=== PATIENT | male | born 1940 | race Caucasian/White ===

== ENCOUNTER 2016-12-22 15:59 | Emergency (ER) | payer OTHER ==
[2016-12-22 16:07] VITALS: O2SAT 92
--- NOTE | 2016-12-22 16:11 | EDPHY ---
H & P Stated Complaint: cough, sob, feels feverish, unable to finish today dialysis HPI/ROS: HPI CHIEF COMPLAINT: Cough, shortness of breath, chills, rigors, dialysis HISTORY OF PRESENT ILLNESS: Patient very pleasant 75-year-old male, undergoing chemotherapy for colon cancer, also is on dialysis end-stage renal disease and gets dialysis Monday and . Patient was at dialysis today he finished 2 hours and 45 minutes of his 3 hour and 45 minutes session. Dialysis was stopped due the patient complaining of chills and rigors. They did take his temperature is T-max was 99.5degrees. He decided to come to the emergency room due to chills and rigors. However since arriving he appears well nontoxic he states that feels well other than a nagging cough. He tells me over the last 2- 3 weeks his cough has progressively gotten worse. Patient does endorse wheezing and shortness of breath this. Of note upon arrival here in the emergency room is afebrile. Nontoxic appearing. Does not appear to be in any acute distress. Past Medical History:Colon cancer, end-stage renal disease, hypertension, coronary artery disease with stents Past Surgical History: Left arm AV fistula Social History: Denies daily use drugs alcohol tobacco products Family History: Noncontributory Dr. Mitchell is his oncologist. ROS REVIEW OF SYSTEMS: A comprehensive 10 point review of systems is otherwise negative aside from elements mentioned in the history of present illness. Exam Constitutional appears well nontoxic, triage nursing summary reviewed, vital signs reviewed, awake/alert. Eyes normal conjunctivae and sclera, EOMI, PERRLA. HENT normal inspection, atraumatic, moist mucus membranes, no epistaxis, neck supple/ no meningismus, no raccoon eyes. Respiratory faint wheezing bilaterally, clear to auscultation bilaterally, normal breath sounds, no respiratory distress Cardiovascular rate normal, regular rhythm, no murmur, no edema, distal pulses normal. Gastrointestinal soft, non-tender, no rebound, no guarding, normal bowel sounds, no distension, no pulsatile mass. Genitourinary no CVA tenderness. Musculoskeletal left upper extremity: AV fistula present, dressing in place, no midline vertebral tenderness, full range of motion, no calf swelling, no tenderness of extremities, no meningismus, good pulses, neurovascularly intact. Skin pink, warm, & dry, no rash, skin atraumatic. Neurologic awake, alert and oriented x 3, AAOx3, moves all 4 extremities equally, motor intact, sensory intact, CN II-XII intact, normal cerebellar, normal vision, normal speech. Psychiatric normal mood/affect. Heme/Lymph/Immune no lymphadenopathy. Differential Diagnosis: Includes but is not limited to in a particular order bacteremia, sepsis, acute febrile illness, dehydration, electrolyte abnormality , pneumonia, influenza, bronchitis. Medical Decision Making: Plan for this patient had an IV established obtain blood work including blood cultures lactic acid, chest x-ray two view to rule out pneumonia, test for influenza, gently hydrate him, patient will have a DuoNeb breathing treatment. Re-evaluation: EKG interpretation by me on record in [employer] system. Impression time of EKG 163, this is sinus tachycardia rate of 100, Q-waves noted in inferior leads to 3 AVF PVC present. Otherwise I do not appreciate acute ischemic event. 174: I spoke with Dr. Prasad with Oncology we went over this patient's case including blood work findings, vital signs, workup including x-ray. It is noted this patient does not have a fever here he is not hypotensive he has no chest pain. He does endorse a bronchitic cough. Nonproductive. His x-ray shows no focal pneumonia does show bronchitis. Blood work has been reviewed he is not neutropenic there is no evidence of high white count there is no evidence of electrolyte disturbance. Blood cultures have been sent. Lactic is not acutely elevated. Feels comfortable with this patient going home. Given that the patient had chills and rigors will send blood cultures. He is afebrile here normal tense of with reassuring blood work. Patient is comfortable being discharged home however he understands to monitor him for high fever rigors nausea vomiting or does not feel well return to the ER. 174: patient is resting comfortably he is comfortable being discharged. I will prescribe him albuterol inhaler and guaifenesin as he does have a cough with bronchitic breathing and faint wheezing. He is comfortable this plan. I did offer him steroids however he has declined due to last time he got steroids he had a shingles outbreak. Source: Patient - Personal History Current Tetanus/Diphtheria Vaccine: Unsure Current Tetanus Diphtheria and Acellular Pertussis (TDAP): Unsure - Medical/Surgical History Hx Asthma: No Hx Chronic Respiratory Disease: No Hx Diabetes: No Hx Cardiac Disease: Yes Hx Renal Disease: Yes Hx Cirrhosis: No Hx Alcoholism: No Hx HIV/AIDS: No Hx Splenectomy or Spleen Trauma: No Other PMH: DIALYISIS MF, LEFT ARM FISTULA, HTN, PROSTATE, CARDIAC STENTS, RENAL FAILURE, REFLUX, CATARACT SURGERY, HIGH LIPIDS , COLON AND LIVER CA W/ CHEMO THERAPY EARLY 08/07 - Social History Smoking Status: Former smoker Constitutional: Initial Vital Signs Temperature (C) 36.6 C 12/22/16 16:04 Heart Rate 107 H 12/22/16 16:04 Respiratory Rate 20 12/22/16 16:04 O2 Sat (%) 92 12/22/16 16:04 O2 Delivery Mode Nasal Cannula O2 (L/minute) 3 Allergies/Adverse Reactions: cefazolin sodium [From Anc] Allergy (Verified 06/28/16 07:56) Home Medications: Medication Instructions Recorded Aspirin [Aspirin 81mg (*)] 81 mg PO DAILY 07/09/16 Atorvastatin Calcium [Lipitor 40 40 mg PO DAILY 07/09/16 mg (*)] Cholecalciferol Vit D3 [Vitamin D3 2,000 units PO HS 07/09/16 2000 units tab (OTC)] Eye Promise Restore 2 cap PO DAILY@12 07/09/16 Fe Fumarate/FA/Vit Bcomp&C 1 each PO DAILY 07/09/16 [Dialyvite 800 with Iron Tab] Finasteride [Proscar 5 MG (*)] 5 mg PO HS 07/09/16 Lisinopril [Zestril 2.5 mg (*)] 2.5 mg PO HS 07/09/16 Omeprazole Magnesium [Prilosec Otc] 20 mg PO DAILY 07/09/16 Sodium Bicarbonate [Na Bicarb] 650 mg PO DAILY@12 07/09/16 Tamsulosin HCl [Flomax 0.4 MG (*)] 0.4 mg PO HS 07/09/16 oxyCODONE/APAP 5/325 [Percocet 1 - 2 tab PO Q4 PRN #30 tab 07/12/16 5/325 (*)] Albuterol [Proventil Inhaler HFA 1 - 2 puffs IH Q4H #1 mdi 12/22/16 (*)] Guaifenesin [Guaifenesin ER] 600 mg PO BID #14 tab.er.12h 12/22/16 Medical Decision Making - Data Points Laboratory Results: Laboratory Results 12/22/16 16:33 12/22/16 16:33 12/22/16 12/22/16 12/22/16 16:33 16:33 16:33 WBC RBC Hgb Hct MCV MCH MCHC RDW Plt Count MPV Neut % (Auto) Lymph % (Auto) [place] % (Auto) Eos % (Auto) Baso % (Auto) Nucleat RBC Rel Count Absolute Neuts (auto) Absolute Lymphs (auto) Absolute Monos (auto) Absolute Eos (auto) Absolute Basos (auto) Absolute Nucleated RBC Immature Gran % Immature Gran # PT 12.5 SEC SEC (12.0-15.0) INR 0.94 (0.83-1.16) APTT 36.9 SEC SEC (23.0-38.0) VBG Lactic Acid 2.1 mmol/L mmol/L (0.7-2.1) Sodium 139 mEq/L mEq/L (134-144) Potassium 3.8 mEq/L mEq/L (3.5-5.2) Chloride 94 mEq/L L mEq/L (97-110) Carbon Dioxide 33 mEq/l H mEq/l (22-31) Anion Gap 12 mEq/L mEq/L (8-16) BUN 20 mg/dL mg/dL (7-23) Creatinine 1.6 mg/dL H mg/dL (0.7-1.3) Estimated GFR 42 Glucose 83 mg/dL mg/dL (70-100) Calcium 9.0 mg/dL mg/dL (8.5-10.4) Magnesium 1.5 mg/dL L mg/dL (1.6-2.3) Total Bilirubin 1.2 mg/dL mg/dL (0.1-1.4) Conjugated Bilirubin 0.3 mg/dL mg/dL (0.0-0.5) Unconjugated Bilirubin 0.9 mg/dL mg/dL (0.0-1.1) AST 49 IU/L IU/L (17-59) ALT 43 IU/L IU/L (21-72) Alkaline Phosphatase 96 IU/L IU/L (38-126) Creatine Kinase 92 IU/L IU/L (0-224) CK-MB (CK-2) Fraction 1.84 ng/mL ng/mL (0-3.19) Troponin I 0.026 ng/mL ng/mL (0-0.034) NT-Pro-B Natriuret Pep 1970 pg/mL H pg/mL (0-450) Total Protein 7.8 g/dL g/dL (6.3-8.2) Albumin 4.1 g/dL g/dL (3.5-5.0) Lipase 640.0 IU/L H IU/L (23-300) 12/22/16 16:33 WBC 4.42 10^3/uL 10^3/uL (3.80-9.50) RBC 4.02 10^6/uL L 10^6/uL (4.40-6.38) Hgb 12.5 g/dL L g/dL (13.7-17.5) Hct 37.1 % L % (40.0-51.0) MCV 92.3 fL fL (81.5-99.8) MCH 31.1 pg pg (27.9-34.1) MCHC 33.7 g/dL g/dL (32.4-36.7) RDW 16.3 % H % (11.5-15.2) Plt Count 107 10^3/uL L 10^3/uL (150-400) MPV 9.9 fL fL (8.7-11.7) Neut % (Auto) 59.7 % % (39.3-74.2) Lymph % (Auto) 17.4 % % (15.0-45.0) [place] % (Auto) 16.1 % H % (4.5-13.0) Eos % (Auto) 5.9 % % (0.6-7.6) Baso % (Auto) 0.7 % % (0.3-1.7) Nucleat RBC Rel Count 0.0 % % (0.0-0.2) Absolute Neuts (auto) 2.64 10^3/uL 10^3/uL (1.70-6.50) Absolute Lymphs (auto) 0.77 10^3/uL L 10^3/uL (1.00-3.00) Absolute Monos (auto) 0.71 10^3/uL 10^3/uL (0.30-0.80) Absolute Eos (auto) 0.26 10^3/uL 10^3/uL (0.03-0.40) Absolute Basos (auto) 0.03 10^3/uL 10^3/uL (0.02-0.10) Absolute Nucleated RBC 0.00 10^3/uL 10^3/uL (0-0.01) Immature Gran % 0.2 % % (0.0-1.1) Immature Gran # 0.01 10^3/uL 10^3/uL (0.00-0.10) PT INR APTT VBG Lactic Acid Sodium Potassium Chloride Carbon Dioxide Anion Gap BUN Creatinine Estimated GFR Glucose Calcium Magnesium Total Bilirubin Conjugated Bilirubin Unconjugated Bilirubin AST ALT Alkaline Phosphatase Creatine Kinase CK-MB (CK-2) Fraction Troponin I NT-Pro-B Natriuret Pep Total Protein Albumin Lipase Medications Given: Discontinued Medications Albuterol/Ipratropium (Duoneb) 3 ml IH EDNOW ONE Stop: 12/22/16 16:22 Last Admin: 12/22/16 16:50 Dose: 3 ml Departure - Departure Disposition: Home, Routine, Self-Care Clinical Impression: Cough, Bronchitis Condition: Good Instructions: Acute Bronchitis (ED), Cold Symptoms (ED) Additional Instructions: 1.Stay well-hydrated. 2. Return immediately to the emergency room if he develops a high fever greater than 100.4 chills rigors vomiting or you do not feel well or you have worsening shortness of breath. Referrals: NONE *PRIMARY CARE P,. [Primary Care Provider] - As per Instructions Prescriptions: Albuterol [Proventil Inhaler HFA (*)] 1 - 2 puffs IH Q4H #1 mdi Guaifenesin [Guaifenesin ER] 600 mg PO BID #14 tab.er.12h
[2016-12-22] MEDS ORDERED: IPRATROPIUM/ALBUTEROL 3 ML DEYVIAL IH ONE (16:21)
--- NOTE | 2016-12-22 16:35 | CPEKG ---
Heart Rate: 100 RR Interval: 600 P-R Interval: 156 QRSD Interval: 82 QT Interval: 360 QTC Interval: 465 P [place]: -8 QRS [place]: -19 T Wave [place]: 14 EKG Severity - ABNORMAL ECG - EKG Impression: SINUS TACHYCARDIA EKG Impression: INFERIOR INFARCT, AGE INDETERMINATE EKG Impression: CONSIDER POSTERIOR WALL INVOLVEMENT Electronically Signed By: Alfa Adamson 22-Dec-2016 21:17:30
[2016-12-22 16:48] VITALS: TEMP 98.2
[2016-12-22 16:55] LABS: % IMMATURE GRANULYOCYTES 0.2 % (0.0-1.1); ABSOLUTE IMMATURE GRANULOCYTES 0.01 10^3/uL (0.00-0.10); ADD DIFF? NO; ADD MORPH? NO; ADD SCAN? NO; ATYPICAL LYMPHOCYTE FLAG 20 (0-99); FRAGMENT RBC FLAG 0 (0-99); HEMATOCRIT 37.1 % (40.0-51.0); HEMOGLOBIN 12.5 g/dL (13.7-17.5); LEFT SHIFT FLG 10 (0-99); LIPEMIA HEMOLYSIS FLAG 80 (0-99); MEAN CELL HEMOGLOBIN 31.1 pg (27.9-34.1); MEAN CELL HEMOGLOBIN CONCENTR. 33.7 g/dL (32.4-36.7); MEAN CELL VOLUME 92.3 fL (81.5-99.8); MEAN PLATELET VOLUME 9.9 fL (8.7-11.7); PLATELET CLUMPS FLAG 0 (0-99); PLATELET COUNT 107 10^3/uL (150-400); RED BLOOD CELL COUNT 4.02 10^6/uL (4.40-6.38); RED CELL DISTRIBUTION WIDTH 16.3 % (11.5-15.2)
[2016-12-22 17:04] LABS: INR 0.94 (0.83-1.16); PROTIME(PATIENT) 12.5 SEC (12.0-15.0)
[2016-12-22 17:05] LABS: APTT 36.9 SEC (23.0-38.0)
[2016-12-22 17:07] LABS: ALANINE AMINOTRANSFERASE 43 IU/L (21-72); ALBUMIN 4.1 g/dL (3.5-5.0); ALKALINE PHOSPHATASE 96 IU/L (38-126); ANION GAP 12 mEq/L (8-16); ASPARTATE AMINOTRANSFERASE 49 IU/L (17-59); BILIRUBIN,TOTAL 1.2 mg/dL (0.1-1.4); BILIRUBIN-CONJUGATED 0.3 mg/dL (0.0-0.5); BILIRUBIN-UNCONJUGATED 0.9 mg/dL (0.0-1.1); CARBON DIOXIDE 33 mEq/l (22-31); CHLORIDE 94 mEq/L (97-110); CREATININE 1.6 mg/dL (0.7-1.3); GLOMERULAR FILTRATION RATE 42; GLUCOSE 83 mg/dL (70-100); MAGNESIUM 1.5 mg/dL (1.6-2.3); POTASSIUM 3.8 mEq/L (3.5-5.2); SODIUM 139 mEq/L (134-144); TOTAL PROTEIN 7.8 g/dL (6.3-8.2)
[2016-12-22 17:19] LABS: CREATINE KINASE-MB FRACTION 1.84 ng/mL (0-3.19); TROPONIN I 0.026 ng/mL (0-0.034)
[2016-12-22 17:57] VITALS: BP 150/86; PULSE 97; RESP 19
== END 2016-12-22 17:57 | disposition home or self-care (01) ==
DX: J40 Bronchitis, not specified as acute or chronic (principal); I10 Essential (primary) hypertension; Z85.038 Personal history of other malignant neoplasm of large intestine; Z85.05 Personal history of malignant neoplasm of liver; Z79.82 Long term (current) use of aspirin; Z87.891 Personal history of nicotine dependence; Z95.5 Presence of coronary angioplasty implant and graft

== ENCOUNTER 2016-12-23 14:06 | Emergency (ER) | payer OTHER ==
[2016-12-23 14:18] VITALS: PULSE 85; RESP 18; TEMP 98.1
--- NOTE | 2016-12-23 14:28 | EDPHY ---
H & P Stated Complaint: Called to return to ED for abnl labs yesterday Time Seen by Provider: 12/23/16 14:20 HPI/ROS: CHIEF COMPLAINT: Positive blood culture, return to ER HISTORY OF PRESENT ILLNESS: 75-year-old male currently undergoing chemotherapy for colon cancer, history of end-stage renal disease with dialysis Monday and , seen the ER yesterday after he developed chills riders during dialysis session, seen in the ER complaining of 2-3 weeks of cough, wheezing. He had laboratory studies performed yesterday including blood culture. The patient subsequently grew out 1 of 2 positive cultures Gram-positive cocci zoster staph coagulase negative in his told did return to the ER for recheck and for repeat blood culture. States that he is feeling asymptomatic, no new complaints. He denies: Fever, chills, chest pain, back pain, abdominal pain, nausea, vomiting, urinary abnormality, dyspnea, headache PRIMARY CARE PROVIDER: REVIEW OF SYSTEMS: A ten point review of systems was performed and is negative with the exception of the items mentioned in the HPI PAST MEDICAL & SURGICAL HISTORY: Colon cancer. End-stage renal disease. Hypertension. Coronary artery disease with stents. Left arm AV fistula. SOCIAL HISTORY: nonsmoker PHYSICAL EXAM (Prior to examination, patient consented to physical exam, hands were washed and my usual and customary physical exam procedures followed) 1) GENERAL: Well-developed, well-nourished, alert and oriented. Appears to be in no acute distress. Smiling, shakes my hand appears well 2) HEAD: Normocephalic, atraumatic 3) HEENT: Pupils equal, round, reactive to light bilaterally. Sclera anicteric. Nasopharynx, oropharynx, clear, no lesions.No tonsillar enlargement or tonsillar exudate Ears bilaterally with normal tympanic membranes. 4) NECK: Full range of motion, no meningeal signs. 5) LUNGS: Clear auscultation bilaterally, no wheezes, no rhonchi, no retractions. 6) HEART: Regular rate and rhythm, no murmur, no heave, no gallop. 7) ABDOMEN: No guarding, no rebound, no focal tenderness, negative McBurney's, negative Kiran's, negative Rovsing's, negative peritoneal sign, 8) MUSCULOSKELETAL: Moving all extremities, no focal areas of tenderness, no obvious trauma. No peripheral edema or discoloration. 9) BACK: No CVA tendernes. 10) SKIN: No rash, no petechiae. 11) Psychiatric: Patient is oriented X 3, there is no agitation. DIFFERENTIAL DIAGNOSIS: no particular include but limited to bronchitis, sepsis, blood contaminant - Personal History Current Tetanus Diphtheria and Acellular Pertussis (TDAP): Yes - Medical/Surgical History Hx Asthma: No Hx Chronic Respiratory Disease: No Hx Diabetes: No Hx Cardiac Disease: Yes Hx Renal Disease: Yes Hx Cirrhosis: No Hx Alcoholism: No Hx HIV/AIDS: No Hx Splenectomy or Spleen Trauma: No Other PMH: DIALYISIS MF, LEFT ARM FISTULA, HTN, PROSTATE, CARDIAC STENTS, RENAL FAILURE, REFLUX, CATARACT SURGERY, HIGH LIPIDS , COLON AND LIVER CA W/ CHEMO THERAPY EARLY 08/07 - Social History Smoking Status: Former smoker Constitutional: Initial Vital Signs Temperature (C) 36.7 C 12/23/16 14:10 Heart Rate 85 12/23/16 14:10 Respiratory Rate 18 12/23/16 14:10 Blood Pressure 148/102 H 12/23/16 14:10 O2 Sat (%) 96 12/23/16 14:10 O2 Delivery Mode Room Air Allergies/Adverse Reactions: cefazolin sodium [From Anc] Allergy (Verified 12/23/16 14:14) Home Medications: Medication Instructions Recorded Aspirin [Aspirin 81mg (*)] 81 mg PO DAILY 07/09/16 Atorvastatin Calcium [Lipitor 40 40 mg PO DAILY 07/09/16 mg (*)] Cholecalciferol Vit D3 [Vitamin D3 2,000 units PO HS 07/09/16 2000 units tab (OTC)] Eye Promise Restore 2 cap PO DAILY@12 07/09/16 Fe Fumarate/FA/Vit Bcomp&C 1 each PO DAILY 07/09/16 [Dialyvite 800 with Iron Tab] Finasteride [Proscar 5 MG (*)] 5 mg PO HS 07/09/16 Lisinopril [Zestril 2.5 mg (*)] 2.5 mg PO HS 07/09/16 Omeprazole Magnesium [Prilosec Otc] 20 mg PO DAILY 07/09/16 Sodium Bicarbonate [Na Bicarb] 650 mg PO DAILY@12 07/09/16 Tamsulosin HCl [Flomax 0.4 MG (*)] 0.4 mg PO HS 07/09/16 oxyCODONE/APAP 5/325 [Percocet 1 - 2 tab PO Q4 PRN #30 tab 07/12/16 5/325 (*)] Albuterol [Proventil Inhaler HFA 1 - 2 puffs IH Q4H #1 mdi 12/22/16 (*)] Guaifenesin [Guaifenesin ER] 600 mg PO BID #14 tab.er.12h 12/22/16 Medical Decision Making ED Course/Re-evaluation: I reviewed the patient's medical records and laboratory studies showing 1 of 2 Gram-positive cocci, Staph coagulase negative. I think this is more than likely contaminant. Nonetheless repeat blood cultures have been obtained, he is currently asymptomatic with stable vital signs, appears well. Discussed case Dr. Deb Taveras in the ER. Repeat blood cultures have been obtained, he will be discharged. I do not think that further diagnostic studies indicated from the emergency department. Usual and customary discharge precautions and instructions provided the patient. He feels comfortable being discharged all questions and concerns addressed by myself. Departure - Departure Disposition: Home, Routine, Self-Care Clinical Impression: Bronchitis Condition: Good Instructions: Acute Bronchitis (ED) Additional Instructions: Return to the ER if you develop fever, chills, nausea, vomiting or any other symptoms that concern you Referrals: Henrry Mitchell MD [Medical Doctor] - 2-3 days, call for appt.
[2016-12-23 15:10] VITALS: BP 149/89; O2SAT 99
== END 2016-12-23 15:10 | disposition home or self-care (01) ==
DX: J40 Bronchitis, not specified as acute or chronic (principal); I12.0 Hypertensive chronic kidney disease with stage 5 chronic kidney disease or end stage renal disease; N18.6 End stage renal disease; I25.10 Atherosclerotic heart disease of native coronary artery without angina pectoris; Z85.038 Personal history of other malignant neoplasm of large intestine; Z85.05 Personal history of malignant neoplasm of liver; Z87.891 Personal history of nicotine dependence; Z95.5 Presence of coronary angioplasty implant and graft

== ENCOUNTER 2017-01-25 10:58 | Day surgery (SDC) | payer OTHER ==
[2017-01-25] MEDS ORDERED: NS 500 ML IV SCH (11:45)
[2017-01-25] MEDS ORDERED: ALBUTEROL 3 ML DEYVIAL ONE (14:09)
[2017-01-25] MEDS ORDERED: MIDAZOLAM 2 MG/2 ML VIAL ONE (14:12)
[2017-01-25] MEDS ORDERED: fentaNYL 100 MCG/2 ML INJ ONE (14:12)
[2017-01-25] MEDS ORDERED: LIDOCAINE 1% 30 ML SDV ONE (14:13)
[2017-01-25] MEDS ORDERED: LIDOCAINE 2% JELLY 5 ML TUBE ONE (14:18)
--- NOTE | 2017-01-25 16:38 | GPN ---
[f rep st] PROCEDURE NOTE DATE OF PROCEDURE: 01/25/2017 REASON FOR PROCEDURE: Right infrahilar mass with bronchial narrowing, question metastatic adenocarc inoma from the colon versus a new primary lung cancer. IDENTIFICATION: The patient is a 76-year-old with metastatic colon cancer to the liver. He has bee n treated with chemotherapy with shrinking liver lesions. However, a right infrahilar lesion has be en growing. This raises the question of a different cancer, possibly a primary lung cancer as he wa s a previous smoker. PROCEDURE: The procedure was done in the endoscopy area and negative flow pressure room. N95 masks were worn. Appropriate time-out was performed. Informed consent was obtained from the patient. C onscious sedation included 100 mcg of fentanyl and 4 mg of Versed given intravenously. Topical anes thesia was accomplished with approximately 20 cc of 1% lidocaine. The fiberoptic bronchoscope was passed via bite block orally into the larynx. Laryngeal structures were observed. The vocal cords were somewhat asymmetrical, larger on the left than the right, but b oth vocal cords appeared to move with cough and respiration. Some paresis cannot be excluded. The bronchoscope was then advanced into the trachea and in the lower tracheobronchial tree bilaterally. Anatomy was normal on the left. In the bronchus intermedius, below the takeoff of the right upper lobe posteriorly, the mucosa was abnormal, consistent with probable malignancy. This extended into the takeoff of the superior segment of the right lower lobe. The right middle lobe and distal segme nts of the right lower lobe were normal, and the mucosa was normal in this area. Bronchial washings were obtained from the bronchus intermedius. This was followed by a brush biopsy sample and by 4 e ndobronchial biopsies. There was some bleeding, requiring approximately 6 cc of 1:10,000 epinephrin e to control the topical bleeding. Bleeding was minimal toward the end of the procedure. Samples were sent for cultures, cytology, and pathology. The patient tolerated the procedure well. There were no complications. Vital signs and oxygen satu ration on supplemental oxygen remained normal throughout the procedure. ASSESSMENT: Abnormal mucosa in the bronchus intermedius as described above, consistent with maligna ncy. Query metastatic adenocarcinoma of the colon versus primary lung cancer. /[id number]/MODL
== END 2017-01-25 16:40 | disposition home or self-care (01) ==
LOC: FSGY 10:58
PROVIDERS: ATTEND Internal Medicine Pulmonary Disease
PROC: 0BB38ZX Excision of Right Main Bronchus, Via Natural or Artificial Opening Endoscopic, Diagnostic (ICD-10-PCS; principal; 2017-01-25 14:30)
DX: C78.01 Secondary malignant neoplasm of right lung (principal); C78.7 Secondary malignant neoplasm of liver and intrahepatic bile duct; Z85.038 Personal history of other malignant neoplasm of large intestine; I25.10 Atherosclerotic heart disease of native coronary artery without angina pectoris; Z95.5 Presence of coronary angioplasty implant and graft; Z87.891 Personal history of nicotine dependence
CPT/HCPCS: J0171; J2250; J3010

== ENCOUNTER 2017-04-01 08:37 | Inpatient (IN) | payer OTHER ==
--- NOTE | 2017-04-01 08:47 | EDPHY ---
H & P Stated Complaint: n/v cough/cancer pt Time Seen by Provider: 04/01/17 08:46 HPI/ROS: CHIEF COMPLAINT: Fever, productive cough HISTORY OF PRESENT ILLNESS: The patient presents to the ED with worsening fever and productive cough for the past 2 days. The patient is currently being treated for metastatic cancer. The patient last take chemotherapy 2 weeks ago. He is also receiving radiation therapy. The patient reports generalized malaise, sensation of dehydration, significant dyspnea an ongoing dry hacking cough. The patient denies any acute abdominal pain or vomiting. The patient is a dialysis patient scheduled for 3 times a week dialysis. The patient was supposed to be dialyzed today. The patient denies any history of fall or trauma. The patient denies additional acute complaints. REVIEW OF SYSTEMS: A comprehensive 10 point review of systems is otherwise negative aside from elements mentioned in the history of present illness. Source: Patient - Personal History Current Tetanus/Diphtheria Vaccine: Yes - Medical/Surgical History Hx Asthma: No Hx Chronic Respiratory Disease: No Hx Diabetes: No Hx Cardiac Disease: Yes Hx Renal Disease: Yes Hx Cirrhosis: No Hx Alcoholism: No Hx HIV/AIDS: No Hx Splenectomy or Spleen Trauma: No Other PMH: DIALYISIS MF, LEFT ARM FISTULA, HTN, PROSTATE, CARDIAC STENTS, RENAL FAILURE, REFLUX, CATARACT SURGERY, HIGH LIPIDS , COLON AND LIVER CA W/ CHEMO THERAPY EARLY 08/07 - Social History Smoking Status: Former smoker - Physical Exam Exam: General Appearance: Thin cachectic male, no acute distress Eyes: Pupils equal and round no pallor or injection ENT, Mouth: Mucous membranes moist Respiratory: Tachypnea, actively coughing, rhonchorous breath sounds bilateral lung bases Cardiovascular: Tachycardic Gastrointestinal: Abdomen is soft and nontender, no masses, bowel sounds normal Neurological: A&O, normal motor function, normal sensory exam, normal cranial nerves Skin: Warm and dry, no rashes Musculoskeletal: Neck is supple nontender Extremities: Dialysis catheter noted in upper extremity Constitutional: Initial Vital Signs Temperature (C) 37.2 C 04/01/17 08:41 Heart Rate 134 H 04/01/17 08:41 Respiratory Rate 20 04/01/17 08:41 Blood Pressure 133/63 H 04/01/17 08:41 O2 Sat (%) 93 04/01/17 08:41 O2 Delivery Mode Room Air Allergies/Adverse Reactions: cefazolin sodium [From Anc] Allergy (Verified 01/24/17 17:50) heparin Allergy (Verified 04/01/17 09:17) Home Medications: Medication Instructions Recorded Aspirin [Aspirin 81mg (*)] 81 mg PO DAILY 07/09/16 Atorvastatin Calcium [Lipitor 40 40 mg PO DAILY 07/09/16 mg (*)] Cholecalciferol Vit D3 [Vitamin D3 2,000 units PO HS 07/09/16 2000 units tab (OTC)] Eye Promise Restore 2 cap PO DAILY@12 07/09/16 Finasteride [Proscar 5 MG (*)] 5 mg PO HS 07/09/16 Iron Fum/Folic AC/Vit Bcomp,C 1 each PO DAILY 07/09/16 [Dialyvite 800 with Iron Tab] Lisinopril [Zestril 2.5 mg (*)] 2.5 mg PO HS 07/09/16 Sodium Bicarbonate [Na Bicarb] 650 mg PO DAILY@12 07/09/16 Tamsulosin HCl [Flomax 0.4 MG (*)] 0.4 mg PO HS 07/09/16 Omeprazole [Prilosec 20 mg] 20 mg PO DAILY 04/01/17 Medical Decision Making - Diagnostics EKG Interpretation: EKG: Complete interpretation has been separately recorded in the [employer] archive. Summary impression: Sinus tachycardia, rate 119 Imaging Results: Imaging Impressions Chest X-Ray 04/01/17 08:48 Impression: Bilateral lower lobe early pneumonia. ED Course/Re-evaluation: The patient presents to the ED with fever, malaise and a productive cough. The patient was noted to be slightly tachycardic and hypoxic upon arrival. Physical examination and chest x-ray confirmed the presence of a bilateral lower lobe pneumonia. The patient had an IV established. He received blood cultures x2. The patient was noted to have leukocytosis and tachycardia. The patient does qualify for sepsis but not severe sepsis. The patient does have an elevated creatinine however this is chronic. The patient was given a single dose of levofloxacin per pharmacy with his history of renal disease and hemodialysis. The patient will require admission to the hospital. Consultation was made with nephrology service. I spoke with at 10:00 a.m.. He will see the patient in consultation Consultation was made with the hospitalist service. I spoke with nurse practitioner Loreto Soni who reports the patient will be admitted by Dr. Federica Conklin. I re-evaluated the patient at 10:15 a.m.. He is resting comfortably in the room. He will receive supplemental oxygen. The patient has mild hyperkalemia with a potassium of 5.4. Re-examination at 11:15 a.m.: Patient continues to be hemodynamically stable aside from mild sinus tachycardia. Patient is awaiting transfer to medical- surgical floor. Differential Diagnosis: Differential diagnosis considered includes pneumonia, sepsis, severe sepsis, neutropenia, myocardial infarction, hyperkalemia, renal failure - Data Points Laboratory Results: Laboratory Results 04/01/17 05:56 04/01/17 09:00 04/01/17 04/01/17 04/01/17 09:06 09:00 05:56 WBC 22.98 10^3/uL H 10^3/uL (3.80-9.50) RBC 3.56 10^6/uL L 10^6/uL (4.40-6.38) Hgb 10.8 g/dL L g/dL (13.7-17.5) Hct 32.3 % L % (40.0-51.0) MCV 90.7 fL fL (81.5-99.8) MCH 30.3 pg pg (27.9-34.1) MCHC 33.4 g/dL g/dL (32.4-36.7) RDW 18.4 % H % (11.5-15.2) Plt Count 133 10^3/uL L 10^3/uL (150-400) MPV 9.6 fL fL (8.7-11.7) Neut % (Auto) 89.1 % H % (39.3-74.2) Lymph % (Auto) 1.5 % L % (15.0-45.0) Bibb % (Auto) 8.3 % % (4.5-13.0) Eos % (Auto) 0.0 % L % (0.6-7.6) Baso % (Auto) 0.3 % % (0.3-1.7) Nucleat RBC Rel Count 0.0 % % (0.0-0.2) Absolute Neuts (auto) 20.49 10^3/uL H 10^3/uL (1.70-6.50) Absolute Lymphs (auto) 0.34 10^3/uL L 10^3/uL (1.00-3.00) Absolute Monos (auto) 1.91 10^3/uL H 10^3/uL (0.30-0.80) Absolute Eos (auto) 0.00 10^3/uL L 10^3/uL (0.03-0.40) Absolute Basos (auto) 0.06 10^3/uL 10^3/uL (0.02-0.10) Absolute Nucleated RBC 0.00 10^3/uL 10^3/uL (0-0.01) Immature Gran % 0.8 % % (0.0-1.1) Immature Gran # 0.18 10^3/uL H 10^3/uL (0.00-0.10) VBG Lactic Acid 1.4 mmol/L mmol/L (0.7-2.1) Sodium 134 mEq/L mEq/L (134-144) Potassium 5.4 mEq/L H mEq/L (3.5-5.2) Chloride 106 mEq/L mEq/L (97-110) Carbon Dioxide 15 mEq/l L mEq/l (22-31) Anion Gap 13 mEq/L mEq/L (8-16) BUN 49 mg/dL H mg/dL (7-23) Creatinine 3.2 mg/dL H mg/dL (0.7-1.3) Estimated GFR 19 Glucose 157 mg/dL H mg/dL (70-100) Calcium 9.4 mg/dL mg/dL (8.5-10.4) Microbiology Results: MICROBIOLOGY 04/01/17 09:25 Nasal, Sinus - Swab Respiratory Panel (PCR) - Final No Organism Detected Departure - Departure Disposition: [facility] Inpatient Acute Clinical Impression: 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 [Primary Care Provider] - As per Instructions
[2017-04-01 09:15] LABS: % IMMATURE GRANULYOCYTES 0.8 % (0.0-1.1); ABSOLUTE IMMATURE GRANULOCYTES 0.18 10^3/uL (0.00-0.10); ADD DIFF? NO; ADD MORPH? NO; ADD SCAN? NO; ATYPICAL LYMPHOCYTE FLAG 0 (0-99); FRAGMENT RBC FLAG 0 (0-99); HEMATOCRIT 32.3 % (40.0-51.0); HEMOGLOBIN 10.8 g/dL (13.7-17.5); LEFT SHIFT FLG 50 (0-99); LIPEMIA HEMOLYSIS FLAG 80 (0-99); MEAN CELL HEMOGLOBIN 30.3 pg (27.9-34.1); MEAN CELL HEMOGLOBIN CONCENTR. 33.4 g/dL (32.4-36.7); MEAN CELL VOLUME 90.7 fL (81.5-99.8); MEAN PLATELET VOLUME 9.6 fL (8.7-11.7); PLATELET CLUMPS FLAG 10 (0-99); PLATELET COUNT 133 10^3/uL (150-400); RED BLOOD CELL COUNT 3.56 10^6/uL (4.40-6.38); RED CELL DISTRIBUTION WIDTH 18.4 % (11.5-15.2)
[2017-04-01 09:33] LABS: ANION GAP 13 mEq/L (8-16); CALCIUM 9.4 mg/dL (8.5-10.4); CARBON DIOXIDE 15 mEq/l (22-31); CHLORIDE 106 mEq/L (97-110); CREATININE 3.2 mg/dL (0.7-1.3); GLOMERULAR FILTRATION RATE 19; GLUCOSE 157 mg/dL (70-100); POTASSIUM 5.4 mEq/L (3.5-5.2); SODIUM 134 mEq/L (134-144)
--- NOTE | 2017-04-01 10:26 | CPEKG ---
Heart Rate: 119 RR Interval: 504 P-R Interval: 152 QRSD Interval: 82 QT Interval: 304 QTC Interval: 428 P [place]: 5 QRS [place]: 30 T Wave [place]: 44 EKG Severity - OTHERWISE NORMAL ECG - EKG Impression: SINUS TACHYCARDIA Electronically Signed By: Wil Cash 01-Apr-2017 12:12:47
--- NOTE | 2017-04-01 11:26 | SOAPPROG ---
SANGEETHA Progress Note Assessment/Plan: Assessment: 1. ESRD - -Patient follows at [facility] for HD TTS -He missed HD and is refusing HD today -I explained risks of failing to adhere with his HD regimen, pt expressed understanding but still refused -Will continue to address with him each day -LUE AVF appears patent 2. PNA - -On levaquin, initial dose 750mg -Cont at renal dose - 500mg Q48hr 3. CKD anemia - -At ESRD goal 4. CKD-MBD - -Give renal diet -Check phos 5. Hyperkalemia - -Mild and would respond to HD but pt refuses -Give low-K+ diet -Hold lisinopril -Consider kayexalate if he continues to refuse HD Plan: 04/01/17 11:22 04/01/17 11:28 04/01/17 11:29 Subjective: 76 y/o M w/ h/o ESRD on HD TTS, metastatic colon CA on chemo, HTN, asthma, BPH, CAD who presents with few days of cough and fevers. He was found to have b/l lower lobe early PNA and has been started on Levaquin. He has no other complaints at this time. He refuses dialysis today and does not give a reason why. His two sons are present at bedside during the interview. They report this is typical behavior for him. The patient was advised of the risks of skipping dialysis and still chooses to refuse therapy. 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
[2017-04-01] MEDS ORDERED: ONDANSETRON DISINTEGRATING 4 MG TAB PO PRN (14:15)
[2017-04-01] MEDS ORDERED: ONDANSETRON 4 MG/2 ML VIAL IVP PRN (14:15)
[2017-04-01] MEDS ORDERED: ALBUTEROL 3 ML DEYVIAL IH PRN (14:15)
[2017-04-01] MEDS ORDERED: LORazepam 0.5 MG TAB PO PRN (14:23)
[2017-04-01] MEDS ORDERED: LEVALBUTEROL 0.63 MG/3 ML DEYVIAL IH PRN (14:34)
[2017-04-01] MEDS ORDERED: IPRATROPIUM BROMIDE 0.5 MG/2.5 ML DEYVIAL IH PRN (14:34)
--- NOTE | 2017-04-01 15:08 | GHP ---
[f rep st] HISTORY AND PHYSICAL DATE OF ADMISSION: 04/01/2017 CHIEF COMPLAINT: Confusion. HISTORY OF PRESENT ILLNESS: The patient is a 76-year-old man with a history significant for metasta tic colon cancer, currently on chemotherapy. He also has a history of a primary lung cancer. He co mes in with altered mental status. Brought in by his son whom he lives with. He has been followed closely by Dr. Mitchell, and has been receiving chemotherapy every couple weeks. Recently a lung mas s was noted on PET scan. He had a biopsy done a couple months ago, which revealed a second primary cancer and he underwent CyberKnife a few weeks ago for that. He has a chronic cough with intermitte nt hemoptysis, and his son stated he may have had possibly change in his cough last night, but the m ain thing he noticed was his dad was getting much more agitated, fidgety, and intermittently confuse d, so he brought him in for further evaluation today. The patient is really unable to provide much history at this time, and all the history is gleaned from the two sons at the bedside. REVIEW OF SYSTEMS: Unreliable. PAST MEDICAL HISTORY: 1. Metastatic colon cancer, currently on chemotherapy. Followed by Dr. Mitchell. 2. Primary lung cancer, recently treated with CyberKnife. 3. History of tobacco use, quit in 1989. 4. Coronary artery disease, status post stents to the LAD and circumflex. 5. Congestive heart failure, estimated EF of 45%, post stenting. 6. Reactive airways disease. 7. End-stage renal disease, followed by Dr. Clement, on hemodialysis. 8. BPH with urinary retention and eventual renal failure. PAST SURGICAL HISTORY: Includes colon resection, and lung biopsy. SOCIAL HISTORY: He currently lives with his son, Jayjay. His other son is his medical power of at [employer]. He quit smoking in 1989. He drinks about 2 drinks per week. Normally he is quite lucid an d ambulatory and does not need a walker or cane. FAMILY HISTORY: Skin cancer in his brother at age 73. PHYSICAL EXAM: VITAL SIGNS: T-max here is 37.7, heart rate 115, blood pressure 114/78, respiration s 20, he is 89% on 2 L. GENERAL: He is a 76-year-old man, he looks agitated and slightly distresse d, however, denies significant pain and refuses any pain medications. He was alert and oriented x4 to the nurse, however, to me he is only alert and oriented x2. Speech is fluent. HEENT: Pupils ar e equal. Extraocular movements intact, although, he has poor eye contact. Mucous membranes are dry . Oropharynx is clear. NECK: Supple without significant adenopathy. HEART: Tachycardic and dist ant. LUNGS: Have diminished bilaterally, no obvious wheeze, rhonchi, or rales. ABDOMEN: Soft, without any mass es. No significant tenderness throughout. EXTREMITIES: No clubbing, cyanosis, or edema. MUSCULOS KELETAL: No joint effusions or deformities. SKIN: Intact, no rash. NEUROLOGIC: He is moving all 4 extremities. He is not oriented. LABORATORY DATA: CBC shows a white count of 22.98, hemoglobin 10.8, platelet count 133. Electrolytes show potassium 5.4, with a CO2 of 15, BUN 49, creatinine 3.2. Blood cultures are pending. Chest x-ray, personally reviewed and interpreted, shows bilateral infiltrates in the lower lobes, wh ich are mild. ASSESSMENT AND PLAN: A 76-year-old presents with altered mental status. He has a history significa nt for metastatic colon cancer, as well as lung cancer. 1. Probable pneumonia with sepsis. Blood pressure stable. He is slightly tachycardic. We will gi ve him another liter of saline. Follow his vital signs and continue treatment with Levaquin for pre sumed community-acquired pneumonia, and follow up on blood cultures. 2. End-stage renal disease, complicated by mild hyperkalemia. Nephrology has been consulted and al ready spoken with the patient. At this time, he is refusing dialysis, however, we will hydrate him. Follow his potassiums, treat as necessary with Kayexalate, and continue to offer him dialysis. 3. Metastatic colon cancer, status post chemotherapy. 4. Lung cancer, status post CyberKnife. 5. History of reactive airway disease. Previous tobacco use. We will start him on Atrovent inhale rs and Xopenex as needed. 6. Acute coronary artery disease, status post stenting, currently patient denies any chest complain ts. 7. Mild ischemic cardiomyopathy. Last EF was noted at 45% several years ago. The patient has no e vidence of fluid overload at this time. 8. DVT prophylaxis. Patient is allergic to heparin and cannot tolerate any of the secondary agents due to his renal failure. We will place José Miguel and MOON musa. /[id number]/MODL
[2017-04-01] MEDS: NS 1,000 ML IV SCH (15:16)
[2017-04-01 16:37] LABS: COLOR YELLOW; LEUKOCYTE ESTERASE,URINE TRACE (NEGATIVE); NITRITE,URINE NEGATIVE (NEGATIVE)
[2017-04-01] MEDS: ACETAMINOPHEN 325 MG TAB PO PRN (18:01)
[2017-04-01] MEDS: PRESERVISION AREDS2 FORMULA EYE VIT 1 EACH PO SCH (18:02)
[2017-04-01] MEDS: guaiFENesin 600 MG TAB.ER PO SCH (20:11)
[2017-04-01] MEDS: FINASTERIDE 5 MG TAB PO SCH (20:11)
[2017-04-01] MEDS: TAMSULOSIN HCL 0.4 MG CAP PO SCH (20:11)
[2017-04-02] MEDS: NS 1,000 ML IV SCH (01:08)
[2017-04-02 06:23] LABS: ADD DIFF? YES; ADD MORPH? NO; ADD SCAN? NO; ATYPICAL LYMPHOCYTE FLAG 0 (0-99); FRAGMENT RBC FLAG 0 (0-99); HEMATOCRIT 29.5 % (40.0-51.0); HEMOGLOBIN 9.9 g/dL (13.7-17.5); LEFT SHIFT FLG 50 (0-99); LIPEMIA HEMOLYSIS FLAG 80 (0-99); MEAN CELL HEMOGLOBIN 30.9 pg (27.9-34.1); MEAN CELL HEMOGLOBIN CONCENTR. 33.6 g/dL (32.4-36.7); MEAN CELL VOLUME 92.2 fL (81.5-99.8); MEAN PLATELET VOLUME 9.8 fL (8.7-11.7); PLATELET CLUMPS FLAG 0 (0-99); PLATELET COUNT 112 10^3/uL (150-400); RED CELL DISTRIBUTION WIDTH 18.9 % (11.5-15.2)
[2017-04-02 06:36] LABS: ANION GAP 10 mEq/L (8-16); CALCIUM 9.3 mg/dL (8.5-10.4); CARBON DIOXIDE 17 mEq/l (22-31); CHLORIDE 107 mEq/L (97-110); CREATININE 3.4 mg/dL (0.7-1.3); GLOMERULAR FILTRATION RATE 18; GLUCOSE 100 mg/dL (70-100); POTASSIUM 5.6 mEq/L (3.5-5.2); SODIUM 134 mEq/L (134-144)
[2017-04-02] MEDS: PRESERVISION AREDS2 FORMULA EYE VIT 1 EACH PO SCH ×2 (08:17→20:36)
[2017-04-02] MEDS: guaiFENesin 600 MG TAB.ER PO SCH ×2 (08:17→20:35)
[2017-04-02] MEDS: ASPIRIN 81 MG CHEWABLE TAB PO SCH (08:17)
[2017-04-02] MEDS: PANTOPRAZOLE SODIUM 40 MG TAB PO SCH (08:17)
[2017-04-02] MEDS: ATORVASTATIN CALCIUM 40 MG TAB PO SCH (08:17)
[2017-04-02] MEDS: NEPHROVITE FOLIC ACID/VIT B&C 1 TAB PO SCH (08:17)
--- NOTE | 2017-04-02 08:41 | HOSPPROG ---
Hospitalist Progress Note Assessment/Plan: A 76-year-old male with history of metastatic colon cancer currently on chemotherapy. He also has a history of primary lung cancer. He came in due to altered mental status. He lives with his son. Today is my 1st encounter with the patient. Chart reviewed. * probable pneumonia with associated sepsis lactate level stable Was tachycardic on admission Blood cultures are pending * end-stage renal disease with associated hyperkalemia Nephrology involved with his care per patient is to get dialysis today * metastatic colon cancer status post chemotherapy * lung cancer status post CyberKnife * reactive airway disease * coronary artery disease status post stenting * mild ischemic cardiomyopathy *Life stressors: lost his 3 years ago to cancer, he was then diagnosed w colon ca and then lung ca. Has a supportive son. *DVT prophylaxis: ambulating, high risk, will initiate heparin sq after dialysis *Plan: dialysis today, will f/u with Dr Mitchell Subjective: Mauricio has no complaints, but shared how hard life has been. Objective: Vital Signs Temp Pulse Resp BP Pulse Ox 37.3 C 87 18 101/70 95 04/02/17 03:20 04/02/17 03:20 04/02/17 03:20 04/02/17 03:20 04/02/17 03:20 Laboratory Results 04/02/17 06:02 04/02/17 06:02 04/01/17 04/02/17 04/03/17 05:59 05:59 05:59 Intake Total 1609 Balance 1609 - Physical Exam Constitutional: not in pain, chronically ill appearing Eyes: PERRL Ears, Nose, Mouth, Throat: hearing normal Cardiovascular: regular rate and rhythym Respiratory: no respiratory distress, other (crackles in right base) Gastrointestinal: normoactive bowel sounds Skin: warm Musculoskeletal: no muscle tenderness Neurologic: AAOx3 Psychiatric: interacting appropriately, not anxious, not encephalopathic ICD10 Worksheet Patient Problems: Problems Problem Status Onset Chronic renal failure Acute 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
[2017-04-02] MEDS ORDERED: VIT BCOMP C PO SCH (09:00)
[2017-04-02] MEDS ORDERED: [UNRECOGNIZED DRUG - OTHER] PO SCH (09:00)
[2017-04-02] MEDS ORDERED: IRON PO SCH (09:00)
[2017-04-02] MEDS ORDERED: FOLIC AC PO SCH (09:00)
[2017-04-02] MEDS ORDERED: NON-FORMULARY NEW DRUG (Omeprazole [Prilosec 20 Mg] 20 MG) PO SCH (09:00)
[2017-04-02] MEDS ORDERED: IRON FUM PO SCH (09:00)
[2017-04-02 09:11] LABS: PLATELET ESTIMATE DECREASED (ADEQ)
[2017-04-02] MEDS ORDERED: EYE PROMISE RESTORE PO SCH (12:00)
[2017-04-02] MEDS: SODIUM BICARBONATE 650 MG TAB PO SCH (12:49)
--- NOTE | 2017-04-02 18:52 | SOAPPROG ---
SANGEETHA Progress Note Assessment/Plan: Assessment: 1. ESRD - -Patient follows at [facility] for HD TTS -He missed HD and is refused HD yesterday -He was agreeable to HD today so this has been initiated, currently stable on treatment -LUE AVF appears patent 2. PNA - -On levaquin, initial dose 750mg -Cont at renal dose - 500mg Q48hr 3. CKD anemia - -At ESRD goal 4. CKD-MBD - -Check phos 5. Hyperkalemia - -Mild and would respond to HD but pt refuses -Will liberalize renal diet to low-K+ diet as he doesn't have his dentures and wanted peanut butter -Holding lisinopril -Should improve after HD today Plan: 04/02/17 18:49 04/02/17 18:51 04/02/17 18:55 Subjective: Seen and examined on HD. Tolerating well. Qb 350. UF 2L. Objective: Vital Signs Temp Pulse Resp BP Pulse Ox 37.3 C 91 22 H 122/98 H 98 04/02/17 15:35 04/02/17 15:35 04/02/17 15:35 04/02/17 15:35 04/02/17 15:35 Laboratory Results 04/02/17 06:02 04/02/17 06:02 04/01/17 04/02/17 04/03/17 05:59 05:59 05:59 Intake Total 1609 Output Total 400 Balance 1609 -400 Physical Exam - Physical Exam General Appearance: WD/WN, alert, no apparent distress Respiratory: lungs clear, other (coarse) Cardiac/Chest: regular rate, rhythm Abdomen: non-tender, soft Extremities: other (LUE AVF +br/thrill), No swelling ICD10 Worksheet Patient Problems: Problems Problem Status Onset Chronic renal failure Acute 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
--- NOTE | 2017-04-02 19:51 | CPEKG ---
Heart Rate: 191 RR Interval: 314 QRSD Interval: 82 QT Interval: 276 QTC Interval: 493 QRS [place]: 34 T Wave [place]: 41 EKG Severity - ABNORMAL ECG - EKG Impression: ATRIAL FIBRILLATION WITH RAPID V-RATE EKG Impression: ST DEPRESSION, PROBABLY RATE RELATED Electronically Signed By: Shola Mike 03-Apr-2017 07:48:23
[2017-04-02] MEDS ORDERED: DILTIAZEM 25 MG/5 ML VIAL IVP ONE ×2 (20:23→21:00)
[2017-04-02] MEDS: FINASTERIDE 5 MG TAB PO SCH (20:35)
[2017-04-02] MEDS: TAMSULOSIN HCL 0.4 MG CAP PO SCH (20:35)
[2017-04-02] MEDS: DILTIAZEM 125 MG in D5W 125 ML IV SCH (20:55)
[2017-04-02] MEDS: ACETAMINOPHEN 325 MG TAB PO PRN (22:00)
[2017-04-02 22:39] LABS: POTASSIUM 3.7 mEq/L (3.5-5.2)
[2017-04-03] MEDS: ACETAMINOPHEN 325 MG TAB PO PRN (02:16)
[2017-04-03 04:57] LABS: ANION GAP 12 mEq/L (8-16); CALCIUM 9.2 mg/dL (8.5-10.4); CARBON DIOXIDE 25 mEq/l (22-31); CHLORIDE 98 mEq/L (97-110); CREATININE 2.4 mg/dL (0.7-1.3); GLOMERULAR FILTRATION RATE 26; GLUCOSE 143 mg/dL (70-100); POTASSIUM 4.4 mEq/L (3.5-5.2); SODIUM 135 mEq/L (134-144)
[2017-04-03] MEDS: DILTIAZEM 125 MG in D5W 125 ML IV SCH (08:21)
[2017-04-03] MEDS: HYDROCODONE/APAP 5/325 TAB PO PRN ×3 (08:26→14:06)
[2017-04-03] MEDS: PRESERVISION AREDS2 FORMULA EYE VIT 1 EACH PO SCH ×2 (08:26→19:15)
[2017-04-03] MEDS: ATORVASTATIN CALCIUM 40 MG TAB PO SCH (08:26)
[2017-04-03] MEDS: NEPHROVITE FOLIC ACID/VIT B&C 1 TAB PO SCH (08:26)
[2017-04-03] MEDS: PANTOPRAZOLE SODIUM 40 MG TAB PO SCH (08:27)
[2017-04-03] MEDS: ASPIRIN 81 MG CHEWABLE TAB PO SCH (08:27)
[2017-04-03] MEDS: guaiFENesin 600 MG TAB.ER PO SCH ×2 (08:27→19:59)
[2017-04-03] MEDS ORDERED: levOFLOXACIN 500 MG/DEXTROSE 100 ML IV SCH (09:00)
[2017-04-03 09:53] LABS: % IMMATURE GRANULYOCYTES 1.4 % (0.0-1.1); ABSOLUTE IMMATURE GRANULOCYTES 0.22 10^3/uL (0.00-0.10); ADD DIFF? NO; ADD MORPH? NO; ADD SCAN? NO; ATYPICAL LYMPHOCYTE FLAG 0 (0-99); FRAGMENT RBC FLAG 0 (0-99); HEMATOCRIT 30.4 % (40.0-51.0); HEMOGLOBIN 10.4 g/dL (13.7-17.5); LEFT SHIFT FLG 20 (0-99); LIPEMIA HEMOLYSIS FLAG 90 (0-99); MEAN CELL HEMOGLOBIN 30.9 pg (27.9-34.1); MEAN CELL HEMOGLOBIN CONCENTR. 34.2 g/dL (32.4-36.7); MEAN CELL VOLUME 90.2 fL (81.5-99.8); MEAN PLATELET VOLUME 10.4 fL (8.7-11.7); PLATELET CLUMPS FLAG 0 (0-99); PLATELET COUNT 146 10^3/uL (150-400); RED BLOOD CELL COUNT 3.37 10^6/uL (4.40-6.38); RED CELL DISTRIBUTION WIDTH 18.6 % (11.5-15.2)
--- NOTE | 2017-04-03 13:06 | SOAPPROG ---
SOSUKI Progress Note Assessment/Plan: Assessment: 1. ESRD Next HD tomorrow 2. Abd pain He is having a sharp pain originating near his midline healed abd incision site. Will review options with nursing. 3. HCAP On treatment 4. MS Changes Better Plan: 04/03/17 13:03 Subjective: Doing better Objective: Vital Signs Temp Pulse Resp BP Pulse Ox 36.6 C 83 14 116/60 96 04/03/17 11:52 04/03/17 11:52 04/03/17 11:52 04/03/17 11:52 04/03/17 11:52 Laboratory Results 04/03/17 09:20 04/03/17 04:20 04/02/17 04/03/17 04/04/17 05:59 05:59 05:59 Intake Total 1609 95 Output Total 750 100 Balance 1609 -655 -100 Physical Exam - Physical Exam General Appearance: no apparent distress Respiratory: lungs clear Cardiac/Chest: regular rate, rhythm Extremities: other (trace ankle edema, fistula site good) ICD10 Worksheet Patient Problems: Problems Problem Status Onset Chronic Disease Mgmt/Transitional Care Acute Chronic renal failure Acute 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
[2017-04-03] MEDS: SODIUM BICARBONATE 650 MG TAB PO SCH (14:06)
[2017-04-03] MEDS: LIDOCAINE 5% 1 EA PATCH TD SCH (14:06)
--- NOTE | 2017-04-03 14:56 | HOSPPROG ---
Hospitalist Progress Note Assessment/Plan: A 76-year-old male with history of metastatic colon cancer currently on chemotherapy. He also has a history of primary lung cancer status post radiation. He came in due to altered mental status. He lives with his son. # pneumonia with associated sepsis, improving. * Continue current antibiotics * Follow respiratory status, he is currently on room air # paroxysmal AFib. Cardioverted to sinus rhythm after several hours. * Consider anticoagulation with Coumadin with no bridge, in the meantime continue aspirin * With recurrent AFib would need to start Coumadin * Consider adding low-dose beta-kellen S blood pressure tolerates * Will check echo # metastatic colon cancer, followed by Dr. Mitchell. Currently receiving chemotherapy * Follow up with Dr. Mitchell as outpatient # new primary lung cancer status post CyberKnife # coronary artery disease status post stenting in follow-up at [facility]. No current symptoms of chest pain # history of mild ischemic cardiomyopathy repeat echo as noted above. # DVT proph: Consider Eliquis, patient has allergy to heparin. *Life stressors: lost his 3 years ago to cancer, he was then diagnosed w colon ca and then lung ca. Has a supportive son. He lives with his youngest son currently. Objective: Vital Signs Temp Pulse Resp BP Pulse Ox 36.6 C 83 14 116/60 96 04/03/17 11:52 04/03/17 11:52 04/03/17 11:52 04/03/17 11:52 04/03/17 11:52 Laboratory Results 04/03/17 09:20 04/03/17 04:20 04/02/17 04/03/17 04/04/17 05:59 05:59 05:59 Intake Total 1609 95 Output Total 750 100 Balance 1609 -655 -100 - Physical Exam Constitutional: no apparent distress, chronically ill appearing Eyes: PERRL, anicteric sclera, EOMI Ears, Nose, Mouth, Throat: moist mucous membranes, hearing normal Cardiovascular: regular rate and rhythym, systolic murmur, No edema Respiratory: no respiratory distress, reduced air movement, inspiratory crackles Gastrointestinal: normoactive bowel sounds, soft, non-tender abdomen, no palpable masses Genitourinary: no bladder fullness Skin: warm, normal color Musculoskeletal: no joint effusions, No asymmetric calves Neurologic: AAOx3 Psychiatric: interacting appropriately, not anxious, not encephalopathic ICD10 Worksheet Patient Problems: Problems Problem Status Onset Chronic Disease Mgmt/Transitional Care Acute Colon carcinoma metastatic to liver Acute Pneumonia Acute Chronic renal failure Acute Sepsis Acute
--- NOTE | 2017-04-03 18:11 | ECHO ---
[id number] + + [address] : : [place] [address] : : [phone] + + Adult Echocardiographic Report + ----+ :Name: Javy RADER Date: 04/03/2017 04:01 PM : : Hospital Admission Number: [id number] Location: 219: :: 1940 Gender: Male Height: 69 in : :Age: 76 yrs Race: WH Weight: 159 lb : :Reason For Study: new afib : : BSA: 1.9 meters2 : :History: new afib : + ----+ MMode/2D Measurements \T\ Calculations IVSd: 0.96 cm RVDd: 3.2 cm FS: 23.7 % LVLd ap4: 10.2 cm LVPWd: 0.94 cm LVIDd: 5.3 cm EDV(Teich): 135.9 mlEDV(MOD-sp4): 178.0 ml LVIDs: 4.0 cm ESV(Teich): 72.1 ml LVLs ap4: 8.8 cm EF(Teich): 47.0 % ESV(MOD-sp4): 92.0 ml EF(MOD-sp4): 48.3 % SV(MOD-sp4): 86.0 ml Normal Measurement Values: + + :LVIDd (3.5-5.7cm) IVSd (0.6-1.1cm) LVPWd (0.6-1.1cm) Aortic Root (2.0-3.7cm)Left Atrium (1.5-4.0cm): :LV Vol(d) (76-115ml) LV Vol(s) (29-48ml) Ejec Fraction (50-65%)PV Remberto (0.6- 1.2m/s) TV Remberto (0.4-1.0m/s) : :MV E Remberto (0.8-1.0m/s)MV A Remberto (0.3-1.0m/s)LVOT Remberto (0.7-1.2m/s) Asc Ao Remberto ( 0.9-1.8m/s) : + + Doppler Measurements \T\ Calculations MV E max remberto: Ao V2 max: LV V1 max: PA V2 max: 65.6 cm/sec 132.9 cm/sec 97.2 cm/sec 102.1 cm/sec MV A max remberto: Ao max P.1 mmHgLV V1 max PG: PA max P.2 mmHg 79.5 cm/sec 3.8 mmHg MV E/A: 0.83 MV dec time: 0.21 sec Left Ventricle The left ventricle is normal in size. There is borderline concentric left ventricular hypertrophy. Left ventricular systolic function is low normal. Ejection Fraction = 50%. Inferior and inferoseptal hypokinesis. Right Ventricle The right ventricle is normal in size and function. Atria The left atrium is mildly dilated. The Left Atrial Volume is 35 ml/m2. Right atrial size is normal. Mitral Valve The mitral valve is normal in structure and function. There is no mitral valve stenosis. There is trace to mild mitral regurgitation. Tricuspid Valve The tricuspid valve is normal in structure and function. There is trace tricuspid regurgitation. Aortic Valve The aortic valve is trileaflet. There is no aortic stenosis. Trace aortic regurgitation. Pulmonic Valve The pulmonic valve is not well visualized. There is no pulmonic valvular regurgitation. Great Vessels The aortic root is normal size. Pericardium/Pleural There is no pericardial effusion. Conclusion A two-dimensional transthoracic echocardiogram with M-mode and Doppler was performed. There is borderline concentric left ventricular hypertrophy. Left ventricular systolic function is low normal. Ejection Fraction = 50%. Inferior and inferoseptal hypokinesis The left atrium is mildly dilated. The Left Atrial Volume is 35 ml/m2. There is trace to mild mitral regurgitation. There is trace tricuspid regurgitation. Trace aortic regurgitation. No prior echo Final Reading Physician: Dr Kaye Woods electronically signed on 04/03/2017 06:10 PM Ordering Physician: Federica Conklin Performed By: Janice Ralph
[2017-04-03] MEDS: TAMSULOSIN HCL 0.4 MG CAP PO SCH (19:59)
[2017-04-03] MEDS: PATCH REMOVAL 1 EA PATCH TD SCH (19:59)
[2017-04-03] MEDS: FINASTERIDE 5 MG TAB PO SCH (19:59)
[2017-04-04 05:44] LABS: % IMMATURE GRANULYOCYTES 1.5 % (0.0-1.1); ABSOLUTE IMMATURE GRANULOCYTES 0.16 10^3/uL (0.00-0.10); ADD DIFF? NO; ADD MORPH? NO; ADD SCAN? NO; ATYPICAL LYMPHOCYTE FLAG 0 (0-99); FRAGMENT RBC FLAG 0 (0-99); HEMATOCRIT 29.3 % (40.0-51.0); HEMOGLOBIN 9.6 g/dL (13.7-17.5); LEFT SHIFT FLG 30 (0-99); LIPEMIA HEMOLYSIS FLAG 80 (0-99); MEAN CELL HEMOGLOBIN 29.8 pg (27.9-34.1); MEAN CELL HEMOGLOBIN CONCENTR. 32.8 g/dL (32.4-36.7); MEAN PLATELET VOLUME 9.9 fL (8.7-11.7); PLATELET CLUMPS FLAG 0 (0-99); PLATELET COUNT 158 10^3/uL (150-400); RED BLOOD CELL COUNT 3.22 10^6/uL (4.40-6.38); RED CELL DISTRIBUTION WIDTH 18.3 % (11.5-15.2)
[2017-04-04 07:04] LABS: ANION GAP 11 mEq/L (8-16); CARBON DIOXIDE 25 mEq/l (22-31); CHLORIDE 100 mEq/L (97-110); GLOMERULAR FILTRATION RATE 20; GLUCOSE 101 mg/dL (70-100); POTASSIUM 4.2 mEq/L (3.5-5.2); SODIUM 136 mEq/L (134-144)
--- NOTE | 2017-04-04 08:36 | SOAPPROG ---
SOAP Progress Note Assessment/Plan: Assessment: 1. ESRD Seen on dialysis. See below. All seems normal with the dialysis. His BP and HR are stable. 2. Pneumonia MS better. Appears to be responding to treatment. 3. HTN At goal 4. Anemia Stable 5. Abd Wall Pain Lidoderm patch removed. Plan on imaging prior to DC. 6. Angioedema Mauricio developed sx's of lip and throat swelling, mild dyspnea, dizziness about 90 minutes after start of dialysis. I occurred after eating. He is unaware of food allergies. He did not get heparin today. We will stop dialysis, give benadryl and solumedrol. Watch closely and analyze for root cause. Subjective: Doing ok with exception of reaction on dialysis Objective: Vital Signs Temp Pulse Resp BP Pulse Ox 36.6 C 82 16 137/53 H 94 04/04/17 04:00 04/04/17 04:00 04/04/17 04:00 04/04/17 04:00 04/04/17 04:00 Laboratory Results 04/04/17 05:20 04/04/17 05:20 04/03/17 04/04/17 04/05/17 05:59 05:59 05:59 Intake Total 95 650 Output Total 750 400 Balance -655 250 Physical Exam - Physical Exam General Appearance: mild distress EENT: other (lip swelling apparent) Respiratory: lungs clear Cardiac/Chest: regular rate, rhythm Extremities: pedal edema Neuro/Psych: oriented x 3 ICD10 Worksheet Patient Problems: Problems Problem Status Onset Chronic Disease Mgmt/Transitional Care Acute Chronic renal failure Acute 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
[2017-04-04] MEDS ORDERED: methylPREDNISolone SOD SUCC 125 MG/2 ML VIAL IVP ONE (08:52)
--- NOTE | 2017-04-04 09:42 | HOSPPROG ---
Hospitalist Progress Note Assessment/Plan: A 76-year-old male with history of metastatic colon cancer currently on chemotherapy. He also has a history of primary lung cancer status post radiation. He came in due to altered mental status secondary to pneumonia. He has been treated with Levaquin and he had an episode of angioedema this am during dialysis. His mental status is back to baseline currently. # Angioedema, occurred during dialysis. Unclear etiology but Levaquin is the only new medication * continue benadryl, pepcid and solumedrol * dc Levaquin * review other medications. # pneumonia with associated sepsis, improving. * Will change abx as patient has never been on Levaquin and it is the only new medication. * Follow respiratory status, he is currently on room air * Due to allergy to Ancef will start him on Invanz and Zithromax. # paroxysmal AFib. Cardioverted to sinus rhythm after several hours. Since Angioedema, rhythm has been erratic and strips reviewed with Dr. Madrigal who feels he is now in MAT. * Will add low dose diltiazem and follow rhythm * No anticoagulation at this time except asa, pt allergic to heparin and reluctant to use eliquis in ESRD. * Echo done * reviewed with Dr. Madrigal. He should fu with [facility] after dc. # metastatic colon cancer, followed by Dr. Mitchell. Currently receiving chemotherapy * Follow up with Dr. Mitchell as outpatient # new primary lung cancer status post CyberKnife # coronary artery disease status post stenting in follow-up at [facility]. No current symptoms of chest pain # history of mild ischemic cardiomyopathy repeat echo as noted above. # DVT proph: Consider Eliquis, patient has allergy to heparin. *Life stressors: lost his 3 years ago to cancer, he was then diagnosed w colon ca and then lung ca. Has a supportive son. He lives with his youngest son currently. I anticipate 2 days more of hospitalization given his episode of angioedema, heart rhythm and pneumonia treatment. Subjective: had swelling in lip during dialysis, better, no respiratory distress Objective: Vital Signs Temp Pulse Resp BP Pulse Ox 36.6 C 82 16 137/53 H 94 04/04/17 04:00 04/04/17 04:00 04/04/17 04:00 04/04/17 04:00 04/04/17 04:00 Laboratory Results 04/04/17 05:20 04/04/17 05:20 04/03/17 04/04/17 04/05/17 05:59 05:59 05:59 Intake Total 95 650 Output Total 750 400 Balance -655 250 - Physical Exam Constitutional: no apparent distress, chronically ill appearing Eyes: PERRL, anicteric sclera, EOMI Ears, Nose, Mouth, Throat: moist mucous membranes, other (swelling upper lip) Cardiovascular: systolic murmur, irregularly irregular, No edema Respiratory: no respiratory distress, reduced air movement, inspiratory crackles Gastrointestinal: normoactive bowel sounds, soft, non-tender abdomen, no palpable masses, other (tenderness lower abdomen.) Genitourinary: no bladder fullness, No delgado in urethra Skin: warm, normal color Musculoskeletal: No joint effusion Neurologic: AAOx3 Psychiatric: interacting appropriately, not anxious, not encephalopathic ICD10 Worksheet Patient Problems: Problems Problem Status Onset Chronic Disease Mgmt/Transitional Care Acute Chronic renal failure Acute 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
[2017-04-04] MEDS ORDERED: METOPROLOL TARTRATE 25 MG TAB PO SCH (09:45)
[2017-04-04] MEDS: SODIUM BICARBONATE 650 MG TAB PO SCH (10:57)
[2017-04-04] MEDS: PANTOPRAZOLE SODIUM 40 MG TAB PO SCH (10:57)
[2017-04-04] MEDS: ATORVASTATIN CALCIUM 40 MG TAB PO SCH (10:57)
[2017-04-04] MEDS: ASPIRIN 81 MG CHEWABLE TAB PO SCH (10:57)
[2017-04-04] MEDS: guaiFENesin 600 MG TAB.ER PO SCH ×2 (10:57→21:05)
[2017-04-04] MEDS: NEPHROVITE FOLIC ACID/VIT B&C 1 TAB PO SCH (10:58)
[2017-04-04] MEDS: LIDOCAINE 5% 1 EA PATCH TD SCH (10:59)
[2017-04-04] MEDS: PRESERVISION AREDS2 FORMULA EYE VIT 1 EACH PO SCH ×2 (11:02→17:17)
[2017-04-04] MEDS: FAMOTIDINE 20 MG TAB PO SCH ×2 (11:02→21:05)
[2017-04-04] MEDS ORDERED: DILTIAZEM 30 MG TAB PO SCH (12:00)
[2017-04-04] MEDS: methylPREDNISolone SOD SUCC 125 MG/2 ML VIAL IVP SCH ×2 (13:21→21:05)
[2017-04-04] MEDS: DILTIAZEM 30 MG TAB PO SCH ×2 (13:21→21:05)
[2017-04-04] MEDS: diphenhydrAMINE 25 MG CAP PO SCH ×3 (13:21→23:45)
[2017-04-04] MEDS: FINASTERIDE 5 MG TAB PO SCH (21:05)
[2017-04-04] MEDS: TAMSULOSIN HCL 0.4 MG CAP PO SCH (21:05)
[2017-04-04] MEDS: PATCH REMOVAL 1 EA PATCH TD SCH (21:06)
[2017-04-05] MEDS: methylPREDNISolone SOD SUCC 125 MG/2 ML VIAL IVP SCH ×2 (05:49→16:22)
[2017-04-05] MEDS: diphenhydrAMINE 25 MG CAP PO SCH ×3 (05:49→17:50)
[2017-04-05] MEDS: DILTIAZEM 30 MG TAB PO SCH ×3 (05:49→21:01)
[2017-04-05 06:55] LABS: ALBUMIN 3.3 g/dL (3.5-5.0); ANION GAP 12 mEq/L (8-16); CALCIUM 9.1 mg/dL (8.5-10.4); CARBON DIOXIDE 23 mEq/l (22-31); CHLORIDE 96 mEq/L (97-110); CREATININE 2.8 mg/dL (0.7-1.3); GLOMERULAR FILTRATION RATE 22; GLUCOSE 143 mg/dL (70-100); POTASSIUM 4.4 mEq/L (3.5-5.2); SODIUM 131 mEq/L (134-144)
[2017-04-05] MEDS: guaiFENesin 600 MG TAB.ER PO SCH ×2 (08:20→21:01)
[2017-04-05] MEDS: ATORVASTATIN CALCIUM 40 MG TAB PO SCH (08:20)
[2017-04-05] MEDS: PANTOPRAZOLE SODIUM 40 MG TAB PO SCH (08:20)
[2017-04-05] MEDS: ASPIRIN 81 MG CHEWABLE TAB PO SCH (08:20)
[2017-04-05] MEDS: AZITHROMYCIN 250 MG TAB PO SCH (08:20)
[2017-04-05] MEDS: FAMOTIDINE 20 MG TAB PO SCH (08:20)
[2017-04-05] MEDS: PRESERVISION AREDS2 FORMULA EYE VIT 1 EACH PO SCH ×2 (08:20→16:41)
[2017-04-05] MEDS: LIDOCAINE 5% 1 EA PATCH TD SCH (08:21)
[2017-04-05] MEDS: NEPHROVITE FOLIC ACID/VIT B&C 1 TAB PO SCH (08:22)
[2017-04-05] MEDS ORDERED: ERTAPENEM 1 GM in NS 100 ML IV SCH (09:00)
[2017-04-05] MEDS ORDERED: ERTAPENEM 0.5 GM in NS 100 ML IV SCH (09:00)
[2017-04-05] MEDS: SODIUM BICARBONATE 650 MG TAB PO SCH (12:12)
[2017-04-05] MEDS ORDERED: POLYETHYLENE GLYCOL 3350 17 GM PKT PO PRN (16:16)
--- NOTE | 2017-04-05 16:25 | HOSPPROG ---
Hospitalist Progress Note Assessment/Plan: A 76-year-old male with history of metastatic colon cancer currently on chemotherapy. He also has a history of primary lung cancer status post radiation. He came in due to altered mental status secondary to pneumonia. He has been treated with Levaquin and he had an episode of angioedema this am during dialysis. His mental status is back to baseline currently. Today Solumedrol, will be changed to Prednisone and he will be monitored overnight with anticipation for discharge tomorrow. # Angioedema, occurred during dialysis. Levaquin was the only new medication but was given one day earlier. Doubt that it was the culprit. Levaquin was stopped. Cont with Invanz and switched to oral meds tomorrow. Start Prednisone # pneumonia with associated sepsis, improving. * Follow respiratory status, he is currently on room air * Due to allergy to Ancef and potentially Levaquin he is on Invanz and Zithromax. # paroxysmal AFib. Cardioverted to sinus rhythm after several hours. Since Angioedema, rhythm has been erratic and strips reviewed with Dr. Madrigal who feels he is now in MAT. * Will add low dose diltiazem and follow rhythm * No anticoagulation at this time except asa, pt allergic to heparin and reluctant to use eliquis in ESRD. * Echo done * reviewed with Dr. Madrigal. He should fu with [facility] after dc. # metastatic colon cancer, followed by Dr. Mitchell. Currently receiving chemotherapy * Follow up with Dr. Mitchell as outpatient # new primary lung cancer status post CyberKnife # ESRD # coronary artery disease status post stenting in follow-up at [facility]. No current symptoms of chest pain # history of mild ischemic cardiomyopathy repeat echo as noted above. # DVT proph: Consider Eliquis, patient has allergy to heparin. *Life stressors: lost his 3 years ago to cancer, he was then diagnosed w colon ca and then lung ca. Has a supportive son. He lives with his youngest son currently. Anticipate discharge tomorrow Subjective: Feels better. Getting dialysis. On RA Objective: Vital Signs Temp Pulse Resp BP Pulse Ox 36.6 C 92 20 131/74 H 93 04/05/17 10:55 04/05/17 10:55 04/05/17 10:55 04/05/17 10:55 04/05/17 10:55 Microbiology 04/01/17 16:38 Urine Culture - Final Urine,Clean Catch Staphylococcus Epidermidis Laboratory Results 04/04/17 05:20 04/05/17 06:00 04/04/17 04/05/17 04/06/17 05:59 05:59 05:59 Intake Total 650 240 250 Output Total 400 Balance 250 240 250 - Physical Exam Constitutional: no apparent distress, not in pain Eyes: PERRL, EOMI Ears, Nose, Mouth, Throat: moist mucous membranes, hearing normal Cardiovascular: regular rate and rhythym Respiratory: no respiratory distress, clear to auscultation Gastrointestinal: normoactive bowel sounds Skin: warm, normal color Neurologic: AAOx3 Psychiatric: interacting appropriately, not anxious ICD10 Worksheet Patient Problems: Problems Problem Status Onset Chronic Disease Mgmt/Transitional Care Acute Chronic renal failure Acute 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
--- NOTE | 2017-04-05 16:49 | SOAPPROG ---
SOAP Progress Note Assessment/Plan: Assessment: 1. ESRD. HD today on MWF schedule. 2. Angioedema. Resolved. Unclear cause. Did not recur with routine dialysis today. Levaquin held. 3. Pneumonia. Improving. Now on Invanz/zithro. Plan: 04/05/17 16:48 Subjective: Just finished dialysis. No problems. 1 L UF. Chronic stable coffey. No dizziness. Objective: Vital Signs Temp Pulse Resp BP Pulse Ox 36.6 C 92 20 131/74 H 93 04/05/17 10:55 04/05/17 10:55 04/05/17 10:55 04/05/17 10:55 04/05/17 10:55 Microbiology 04/01/17 16:38 Urine Culture - Final Urine,Clean Catch Staphylococcus Epidermidis Laboratory Results 04/04/17 05:20 04/05/17 06:00 04/04/17 04/05/17 04/06/17 05:59 05:59 05:59 Intake Total 650 240 250 Output Total 400 Balance 250 240 [address] chair. Just finished HD. 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
[2017-04-05] MEDS: predniSONE 20 MG TAB PO SCH (17:50)
[2017-04-05] MEDS: FINASTERIDE 5 MG TAB PO SCH (21:01)
[2017-04-05] MEDS: PATCH REMOVAL 1 EA PATCH TD SCH (21:02)
[2017-04-05] MEDS: TAMSULOSIN HCL 0.4 MG CAP PO SCH (21:02)
[2017-04-06] MEDS: diphenhydrAMINE 25 MG CAP PO SCH ×4 (05:41→17:41)
[2017-04-06] MEDS: DILTIAZEM 30 MG TAB PO SCH ×2 (05:53→16:18)
[2017-04-06 07:39] LABS: ANION GAP 11 mEq/L (8-16); CALCIUM 9.4 mg/dL (8.5-10.4); CARBON DIOXIDE 27 mEq/l (22-31); CHLORIDE 96 mEq/L (97-110); CREATININE 2.3 mg/dL (0.7-1.3); GLOMERULAR FILTRATION RATE 28; GLUCOSE 128 mg/dL (70-100); POTASSIUM 4.2 mEq/L (3.5-5.2); SODIUM 134 mEq/L (134-144)
[2017-04-06] MEDS ORDERED: FAMOTIDINE 20 MG TAB PO SCH (09:00)
[2017-04-06] MEDS: PRESERVISION AREDS2 FORMULA EYE VIT 1 EACH PO SCH ×2 (09:15→17:41)
[2017-04-06] MEDS: predniSONE 20 MG TAB PO SCH ×2 (09:15→17:41)
[2017-04-06] MEDS: PANTOPRAZOLE SODIUM 40 MG TAB PO SCH (09:15)
[2017-04-06] MEDS: ASPIRIN 81 MG CHEWABLE TAB PO SCH (09:16)
[2017-04-06] MEDS: guaiFENesin 600 MG TAB.ER PO SCH (09:16)
[2017-04-06] MEDS: ATORVASTATIN CALCIUM 40 MG TAB PO SCH (09:16)
[2017-04-06] MEDS: AZITHROMYCIN 250 MG TAB PO SCH (09:16)
[2017-04-06] MEDS: NEPHROVITE FOLIC ACID/VIT B&C 1 TAB PO SCH (09:21)
[2017-04-06] MEDS: LIDOCAINE 5% 1 EA PATCH TD SCH (09:22)
[2017-04-06 12:02] VITALS: RESP 16; O2SAT 94
[2017-04-06] MEDS: SODIUM BICARBONATE 650 MG TAB PO SCH (13:26)
--- NOTE | 2017-04-06 14:24 | SOAPPROG ---
SOAP Progress Note Assessment/Plan: Assessment: ESRD, Seen on HD Pneumonia Plan: HD today ABX home when OK with others 04/06/17 14:21 Subjective: spirits good denies pain, nausea, vomiting, anorexia, fatigue No cp or SOB Wants to go home Objective: Vital Signs Temp Pulse Resp BP Pulse Ox 36.7 C 72 16 139/72 H 94 04/06/17 12:00 04/06/17 12:00 04/06/17 12:00 04/06/17 12:00 04/06/17 12:00 Microbiology 04/01/17 16:38 Urine Culture - Final Urine,Clean Catch Staphylococcus Epidermidis Laboratory Results 04/04/17 05:20 04/06/17 05:55 04/05/17 04/06/17 04/07/17 05:59 05:59 05:59 Intake Total 240 1680 Output Total 100 Balance 240 1580 Physical Exam - Physical Exam General Appearance: alert Respiratory: No rhonchi, No wheezing Cardiac/Chest: regular rate, rhythm, No edema, No gallop, No friction rub Abdomen: normal bowel sounds, non-tender, soft, No distended Skin: warm/dry Extremities: No non-tender, No pedal edema Neuro/Psych: alert, normal mood/affect, oriented x 3 ICD10 Worksheet Patient Problems: Problems Problem Status Onset Chronic Disease Mgmt/Transitional Care Acute Chronic renal failure Acute 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
--- NOTE | 2017-04-06 15:54 | PDDCSUM ---
Discharge Summary Discharge Summary: HPI and Hospital Course: A 76-year-old male with history of metastatic colon cancer currently on chemotherapy and also has a history of primary lung cancer status post radiation admitted for pneumonia. He was treated with Levaquin and he had an episode of angioedema during dialysis that may have been due to the Levaquin. He is a Cefazolin allergy. He was treated with Invanz. At the time of discharge , abx are being changed to clindamycin. He will be treated for 4 additional day. There has not been any recurrence of the Angioedema and he was treated with steroids which have not been continued at the time of discharge. He had Encephalopathy which has resolved. Renal was consulted for HD for his ESRD. He is on HD on Discharge diagnosis: # Angioedema, occurred during dialysis. # pneumonia with associated sepsis, improving. * Follow respiratory status, he is currently on room air * Due to allergy to Ancef and potentially Levaquin he is on Invanz and Zithromax. Now changing to Clindamycin and Zithromax. # paroxysmal AFib. Cardioverted to sinus rhythm after several hours. Since Angioedema, rhythm has been erratic and strips reviewed with Dr. Madrigal who feels he is now in MAT. * Will add low dose diltiazem and follow rhythm * No anticoagulation at this time except asa, pt allergic to heparin and reluctant to use eliquis in ESRD. * Echo done * reviewed with Dr. Madrigal. He should fu with [facility] after dc. # metastatic colon cancer, followed by Dr. Mitchell. Currently receiving chemotherapy * Follow up with Dr. Mitchell as outpatient # new primary lung cancer status post CyberKnife # ESRD # coronary artery disease status post stenting in follow-up at [facility]. No current symptoms of chest pain # history of mild ischemic cardiomyopathy repeat echo as noted above. # DVT proph: Consider Eliquis, patient has allergy to heparin. discharge exam: On RA RRR CTA B S/NT/ND NO LE EDEMA discharge meds: See med rec. New meds: Amlodipine, Azithromycin, Clindamycin total care time spent on discharge is 35 mins
[2017-04-06 16:19] VITALS: PULSE 88
[2017-04-06 16:24] VITALS: BP 133/86; TEMP 98
[2017-04-06] MEDS ORDERED: ALTEPLASE 2 MG VIAL IVP PRN (16:31)
[2017-04-06] MEDS ORDERED: ERTAPENEM 0.5 GM in NS 100 ML IV SCH (17:00)
== END 2017-04-06 18:25 | disposition home or self-care (01) | DRG 871 ==
LOC: F3E 12:33 → F2W 04-02 20:18
PROVIDERS: ADMIT Internal Medicine; ATTEND Family Medicine
PROC: 5A1D60Z (ICD-10-PCS; principal; 2017-04-02)
DX: A41.9 Sepsis, unspecified organism (principal); J18.9 Pneumonia, unspecified organism; G93.40 Encephalopathy, unspecified; C18.9 Malignant neoplasm of colon, unspecified; C79.9 Secondary malignant neoplasm of unspecified site; Z99.2 Dependence on renal dialysis; N18.6 End stage renal disease; I12.0 Hypertensive chronic kidney disease with stage 5 chronic kidney disease or end stage renal disease; Z95.5 Presence of coronary angioplasty implant and graft; K21.9 Gastro-esophageal reflux disease without esophagitis; E78.5 Hyperlipidemia, unspecified; Z79.899 Other long term (current) drug therapy; E87.5 Hyperkalemia; I25.10 Atherosclerotic heart disease of native coronary artery without angina pectoris; J45.909 Unspecified asthma, uncomplicated; N40.1 Benign prostatic hyperplasia with lower urinary tract symptoms; R33.9 Retention of urine, unspecified; I25.5 Ischemic cardiomyopathy; D63.1 Anemia in chronic kidney disease; I48.0 Paroxysmal atrial fibrillation; T78.3XXA Angioneurotic edema, initial encounter; T36.8X5A Adverse effect of other systemic antibiotics, initial encounter; Z88.1 Allergy status to other antibiotic agents; Z85.118 Personal history of other malignant neoplasm of bronchus and lung
CPT/HCPCS: 97116-GP; 97161-GP; 97165-GO; 97530-GO; 97535-GO; G8978-GP-CJ; G8979-GP-CI; G8987-GO-CI; G8988-GO-CI; G8989-GO-CI; J1200; J1335; J1956; J2405; J2997

== ENCOUNTER 2017-04-09 09:02 | Emergency (ER) | payer OTHER ==
--- NOTE | 2017-04-09 09:21 | EDPHY ---
H & P Time Seen by Provider: 04/09/17 09:20 HPI/ROS: CHIEF COMPLAINT: Multiple complaints HISTORY OF PRESENT ILLNESS: This patient is a 76-year-old male with history of end-stage renal failure and metastatic colon cancer who presents to the Emergency Department with multiple ongoing complaints. He has had ongoing left lower quadrant pain following tumor resection from his left abdomen. Today, he began to experience an acute "nagging" pain localized to his right lower quadrant that he describes as mild (severity 2/10). He denies nausea or vomiting. He reports diarrhea over the past week that resolved yesterday. He had a normal bowel movement this morning which did not alleviate his abdominal pain. He had a recent allergic reaction during dialysis on which presented with angioedema; he reports that his angioedema resolved but yesterday , he began to experience lip swelling that has persisted to the present. The swelling is mild. Does not tolerate Benadryl or steroids. He denies rash or shortness of breath. He was admitted to the hospital for pneumonia on 04/01/2017 and discharged home on 04/06 and started on diltiazem, clindamycin and Zithromax. He has been compliant with these medications. He has completed Zithromax and thinks that Zithromax caused the allergic rxn. He describes his cough as productive and improving since returning home. He denies fever, chills , SOB or malaise. His final complaint is of ongoing non-exertional left sided chest discomfort following CyberKnife treatment one month ago with no recent changes to this. REVIEW OF SYSTEMS: Constitutional: No fever, no chills Eyes: No visual changes ENT: +sore throat Respiratory: +cough, no shortness of breath Cardiac: +chest pain ongoing over the past month Gastrointestinal: No nausea, no vomiting, +right-sided abdominal pain Genitourinary: No hematuria, no dysuria Musculoskeletal: No leg pain or swelling Skin: No rash Neurological: No headache, no numbness, no weakness Psychiatric: No depression Past Medical/Surgical History: PMH includes: End-stage renal disease, metastatic colon cancer. Prior records reviewed from visit and subsequent admission on 04/01/2017 for pneumonia; the patient was discharged home on clindamycin and Zithromax on 04/06 , three days prior to arrival. Social History: Former smoker. Smoking Status: Former smoker Physical Exam: General Appearance: Alert, talkative and joking Eyes: Pupils equal and round, no conjunctival pallor or injection ENT, Mouth: Mucous membranes moist, mild lower lip swelling Neck: Normal inspection, no stridor Respiratory: Lungs are clear to auscultation, no wheezing Cardiovascular: Regular rate and rhythm Gastrointestinal: Abdomen is soft with LLQ tenderness Neurological: A&O, nonfocal, normal gait Skin: Warm and dry, no rash Extremities: Nontender, no pedal edema Psychiatric: Mood and affect normal Constitutional: Initial Vital Signs Temperature (C) 36.6 C 04/09/17 09:06 Heart Rate 85 04/09/17 09:06 Respiratory Rate 18 04/09/17 09:06 Blood Pressure 139/67 H 04/09/17 09:06 O2 Sat (%) 93 04/09/17 09:06 O2 Delivery Mode Room Air Allergies/Adverse Reactions: levofloxacin [From Levaquin] Allergy (Severe, Verified 04/09/17 09:03) Swelling/neck,face,throat cefazolin sodium [From Ancef] Allergy (Verified 04/09/17 09:03) heparin Allergy (Verified 04/09/17 09:03) Home Medications: Medication Instructions Recorded Aspirin [Aspirin 81mg (*)] 81 mg PO DAILY 07/09/16 Atorvastatin Calcium [Lipitor 40 40 mg PO DAILY 07/09/16 mg (*)] Cholecalciferol Vit D3 [Vitamin D3 2,000 units PO HS 07/09/16 2000 units tab (OTC)] Eye Promise Restore 2 cap PO DAILY@12 07/09/16 Finasteride [Proscar 5 MG (*)] 5 mg PO HS 07/09/16 Iron Fum/Folic AC/Vit Bcomp,C 1 each PO DAILY 07/09/16 [Dialyvite 800 with Iron Tab] Sodium Bicarbonate [Na Bicarb] 650 mg PO DAILY@12 07/09/16 Tamsulosin HCl [Flomax 0.4 MG (*)] 0.4 mg PO HS 07/09/16 Chemo 1 ea AD 04/01/17 Omeprazole [Prilosec 20 mg] 20 mg PO DAILY 04/01/17 Azithromycin [Zithromax] 250 mg PO DAILY #3 tab 04/06/17 Clindamycin HCl [Clindamycin] 300 mg PO TID #12 cap 04/06/17 Diltiazem [Cardizem Ir Q6hr] 30 mg PO Q8 #90 tab 04/06/17 Medical Decision Making - Diagnostics EKG Interpretation: EKG interpreted by me reveals normal sinus rhythm, rate 97; ventricular premature complexes; borderline inferior Q waves; PAC. ED Course/Re-evaluation: 76-year-old male with end-stage renal disease, metastatic colon cancer, and pneumonia diagnosed on 04/01 presents with multiple ongoing complaints of abdominal pain, chest pain, lip swelling, and persistent cough. He is alert and comfortable appearing on presentation. His O2 saturation is 92% on RA; lungs are clear to auscultation. His abdomen is soft with some LLQ tenderness to palpation. EKG obtained. Plan for labs and CT of the abdomen without contrast. Labs reviewed. WBC is slightly improved from previous at 10.36. CT of the abdomen is negative for acute process per Dr. Saldana, radiology. I discussed lab and imaging results with the patient. His pneumonia appears to be improving given his improved WBC and normal breath sounds bilaterally on exam. There is no acute etiological explanation for his abdominal pain based on today's workup. I discussed customary return precautions with him related to his abdominal pain. He agrees to follow-up with his primary care provider this week for further evaluation of other ongoing complaints. d/w pt allergic rxn; he took Diltiazem and Clindamycin this morning without any change in lip swelling. Doubt these new meds as etiology of allergic rxn. Possibly secondary to Zpak. He will be discharged home in good condition. Differential Diagnosis: Differential diagnosis includes though it is not limited to appendicitis, cholecystitis, diverticulitis, pyelonephritis, bowel perforation, small bowel obstruction. - Data Points Laboratory Results: Laboratory Results 04/09/17 09:30 04/09/17 09:30 04/09/17 04/09/17 09:30 09:30 WBC 10.36 10^3/uL H 10^3/uL (3.80-9.50) RBC 3.64 10^6/uL L 10^6/uL (4.40-6.38) Hgb 11.0 g/dL L g/dL (13.7-17.5) Hct 32.6 % L % (40.0-51.0) MCV 89.6 fL fL (81.5-99.8) MCH 30.2 pg pg (27.9-34.1) MCHC 33.7 g/dL g/dL (32.4-36.7) RDW 18.3 % H % (11.5-15.2) Plt Count 303 10^3/uL 10^3/uL (150-400) MPV 9.2 fL fL (8.7-11.7) Neut % (Auto) Not Reported Lymph % (Auto) Not Reported [place] % (Auto) Not Reported Eos % (Auto) Not Reported Baso % (Auto) Not Reported Nucleat RBC Rel Count 0.2 % % (0.0-0.2) Absolute Neuts (auto) Not Reported Absolute Lymphs (auto) Not Reported Absolute Monos (auto) Not Reported Absolute Eos (auto) Not Reported Absolute Basos (auto) Not Reported Absolute Nucleated RBC 0.02 10^3/uL H 10^3/uL (0-0.01) Immature Gran % Not Reported Seg Neutrophils % 75 % % Band Neutrophils % 10 % % Lymphocytes % 4 % % Monocytes % 6 % % Eosinophils % 3 % % Metamyelocytes % 1 % % Myelocytes % 1 % % Immature Gran # Not Reported Absolute Seg Neuts 7.77 10^/uL H 10^/uL (1.70-6.50) Absolute Band Neuts 1.04 10^3/uL H 10^3/uL (0.00-0.70) Absolute Lymphocytes 0.41 10^3/uL L 10^3/uL (1.00-3.00) Absolute Monocytes 0.62 10^3/uL 10^3/uL (0.30-0.80) Absolute Eosinophils 0.31 10^3/uL 10^3/uL (0.03-0.40) Absolute Metamyelocyte 0.10 10^3/mL H 10^3/mL (0.00-0.00) Absolute Myelocytes 0.10 10^3/mL H 10^3/mL (0.00-0.00) Platelet Estimate ADEQUATE (ADEQ) Polychromasia 1+ H Smear Review By Pending Sodium 133 mEq/L L mEq/L (134-144) Potassium 3.7 mEq/L mEq/L (3.5-5.2) Chloride 102 mEq/L mEq/L (97-110) Carbon Dioxide 22 mEq/l mEq/l (22-31) Anion Gap 9 mEq/L mEq/L (8-16) BUN 41 mg/dL H mg/dL (7-23) Creatinine 2.2 mg/dL H mg/dL (0.7-1.3) Estimated GFR 29 Glucose 99 mg/dL mg/dL (70-100) Calcium 8.9 mg/dL mg/dL (8.5-10.4) Total Bilirubin 1.2 mg/dL mg/dL (0.1-1.4) Conjugated Bilirubin 0.3 mg/dL mg/dL (0.0-0.5) Unconjugated Bilirubin 0.9 mg/dL mg/dL (0.0-1.1) AST 43 IU/L IU/L (17-59) ALT 61 IU/L IU/L (21-72) Alkaline Phosphatase 83 IU/L IU/L (38-126) Total Protein 5.9 g/dL L g/dL (6.3-8.2) Albumin 2.9 g/dL L g/dL (3.5-5.0) Lipase 531.0 IU/L H IU/L (23-300) Departure - Departure Disposition: Home, Routine, Self-Care Clinical Impression: Abdominal pain Qualifiers: Abdominal location: left lower quadrant Qualified Code(s): R10.32 - Left lower quadrant pain Condition: Good Instructions: Abdominal Pain (ED) Additional Instructions: 1. Follow-up with your oncologist if your abdominal pain persists in the next 2- 3 days. 2. Use Lidoderm patch as prescribed to treat ongoing abdominal pain. 3. Return to the Emergency Department with severe abdominal or chest pain, difficulty breathing, weakness, increased facial swelling, rash, or other serious concerns. 4. Your are probably allergic to Zithromax. Please include this in your allergy list. Referrals: Henrry Mitchell MD [Medical Doctor] - As per Instructions Report Scribed for: Deb Taveras Report Scribed by: Yamel Erickson Date of Report: 04/09/17 Time of Report: 09:21 Physician Review and Approval Statement: 04/09/17 09:21 Portions of this note were transcribed by a medical support specialist. I personally performed a history, physical exam, medical decision making, and confirmed accuracy of information the transcribed note.
--- NOTE | 2017-04-09 09:21 | CPEKG ---
Heart Rate: 97 RR Interval: 619 P-R Interval: 152 QRSD Interval: 90 QT Interval: 368 QTC Interval: 468 P [place]: -19 QRS [place]: 16 T Wave [place]: 44 EKG Severity - ABNORMAL ECG - EKG Impression: SINUS RHYTHM EKG Impression: PAIRED VENTRICULAR PREMATURE COMPLEXES EKG Impression: BORDERLINE INFERIOR Q WAVES EKG Impression: PAC Electronically Signed By: Deb Taveras 09-Apr-2017 11:49:56
[2017-04-09 09:56] LABS: ABSOLUTE NRBC COUNT 0.02 10^3/uL (0-0.01); ADD DIFF? YES; ADD MORPH? NO; ATYPICAL LYMPHOCYTE FLAG 20 (0-99); FRAGMENT RBC FLAG 0 (0-99); HEMATOCRIT 32.6 % (40.0-51.0); LIPEMIA HEMOLYSIS FLAG 80 (0-99); MEAN CELL HEMOGLOBIN 30.2 pg (27.9-34.1); MEAN CELL HEMOGLOBIN CONCENTR. 33.7 g/dL (32.4-36.7); MEAN CELL VOLUME 89.6 fL (81.5-99.8); MEAN PLATELET VOLUME 9.2 fL (8.7-11.7); NRBC-AUTO% 0.2 % (0.0-0.2); PLATELET CLUMPS FLAG 0 (0-99); PLATELET COUNT 303 10^3/uL (150-400); RED BLOOD CELL COUNT 3.64 10^6/uL (4.40-6.38); RED CELL DISTRIBUTION WIDTH 18.3 % (11.5-15.2)
[2017-04-09 10:00] LABS: LEFT SHIFT FLG 110 (0-99)
[2017-04-09 10:08] LABS: ALANINE AMINOTRANSFERASE 61 IU/L (21-72); ALBUMIN 2.9 g/dL (3.5-5.0); ALKALINE PHOSPHATASE 83 IU/L (38-126); ANION GAP 9 mEq/L (8-16); ASPARTATE AMINOTRANSFERASE 43 IU/L (17-59); BILIRUBIN,TOTAL 1.2 mg/dL (0.1-1.4); BILIRUBIN-CONJUGATED 0.3 mg/dL (0.0-0.5); BILIRUBIN-UNCONJUGATED 0.9 mg/dL (0.0-1.1); CALCIUM 8.9 mg/dL (8.5-10.4); CARBON DIOXIDE 22 mEq/l (22-31); CHLORIDE 102 mEq/L (97-110); CREATININE 2.2 mg/dL (0.7-1.3); GLOMERULAR FILTRATION RATE 29; GLUCOSE 99 mg/dL (70-100); POTASSIUM 3.7 mEq/L (3.5-5.2); SODIUM 133 mEq/L (134-144); TOTAL PROTEIN 5.9 g/dL (6.3-8.2)
[2017-04-09 10:43] LABS: PLATELET ESTIMATE ADEQUATE (ADEQ); POLYCHROMASIA 1+
[2017-04-09] MEDS ORDERED: LIDOCAINE 5% 1 EA PATCH TD ONE ×2 (11:18→11:19)
[2017-04-09 11:39] VITALS: BP 155/94; PULSE 88; RESP 18; TEMP 98.1; O2SAT 94
[2017-04-09] MEDS ORDERED: PATCH REMOVAL 1 EA PATCH TD SCH (21:00)
== END 2017-04-09 11:38 | disposition home or self-care (01) ==
DX: R10.32 Left lower quadrant pain (principal); N18.6 End stage renal disease; Z85.038 Personal history of other malignant neoplasm of large intestine; Z87.891 Personal history of nicotine dependence; Z79.82 Long term (current) use of aspirin

== ENCOUNTER 2017-09-02 20:14 | Inpatient (IN) | payer OTHER ==
--- NOTE | 2017-09-02 20:16 | EDPHY ---
H & P Time Seen by Provider: 09/02/17 20:16 - Medical/Surgical History Hx Asthma: No Hx Chronic Respiratory Disease: No Hx Diabetes: No Hx Cardiac Disease: Yes Hx Renal Disease: Yes Hx Cirrhosis: No Hx Alcoholism: No Hx HIV/AIDS: No Hx Splenectomy or Spleen Trauma: No Other PMH: DIALYISIS MF, LEFT ARM FISTULA, HTN, PROSTATE enlarged, CARDIAC STENTS, RENAL FAILURE, REFLUX, CATARACT SURGERY, HIGH LIPIDS , COLON AND LIVER CA W/ CHEMO THERAPY and resection EARLY 08/07, lung cancer radiation, sternum fx years ago, silent PR years ago, PTSD - Social History Smoking Status: Former smoker Constitutional: Initial Vital Signs Temperature (C) 37.8 C 09/02/17 20:16 Heart Rate 107 H 09/02/17 20:16 Respiratory Rate 29 H 09/02/17 20:16 Blood Pressure 98/60 L 09/02/17 20:16 O2 Sat (%) 80 L 09/02/17 20:16 O2 Delivery Mode Hi-Flow Nasal Cannula,Heliox,Oxymask O2 (L/minute) 15 Allergies/Adverse Reactions: levofloxacin [From Levaquin] Allergy (Severe, Verified 04/09/17 09:03) Swelling/neck,face,throat cefazolin sodium [From Ancef] Allergy (Verified 04/09/17 09:03) heparin Allergy (Verified 04/09/17 09:03) Home Medications: Medication Instructions Recorded Aspirin [Aspirin 81mg (*)] 81 mg PO DAILY 07/09/16 Atorvastatin Calcium [Lipitor 40 40 mg PO DAILY 07/09/16 mg (*)] Cholecalciferol Vit D3 [Vitamin D3 2,000 units PO HS 07/09/16 2000 units tab (OTC)] Eye Promise Restore 2 cap PO DAILY@12 07/09/16 Finasteride [Proscar 5 MG (*)] 5 mg PO HS 07/09/16 Iron Fum/Folic AC/Vit Bcomp,C 1 each PO DAILY 07/09/16 [Dialyvite 800 with Iron Tab] Sodium Bicarbonate [Na Bicarb] 650 mg PO DAILY@12 07/09/16 Tamsulosin HCl [Flomax 0.4 MG (*)] 0.4 mg PO HS 07/09/16 Chemo 1 ea AD 04/01/17 Omeprazole [Prilosec 20 mg] 20 mg PO DAILY 04/01/17 Azithromycin [Zithromax] 250 mg PO DAILY #3 tab 04/06/17 Clindamycin HCl [Clindamycin] 300 mg PO TID #12 cap 04/06/17 Diltiazem [Cardizem Ir Q6hr] 30 mg PO Q8 #90 tab 04/06/17 Lisinopril [Zestril 2.5 mg (*)] 2.5 mg PO DAILY 09/02/17 Megestrol Acetate [Megace] 400 mg PO 09/02/17 predniSONE [Prednisone] 10 mg PO 09/02/17 Medical Decision Making - Diagnostics Imaging Results: Imaging Impressions Chest X-Ray 09/02/17 20:19 Impression: Diffuse bilateral pulmonary vascular prominence, circulating hypervolemia or early congestive failure. Imaging: Discussed imaging studies w/ art education professor Radiologist, I viewed and interpreted images myself ED Course/Re-evaluation: CHIEF COMPLAINT: Respiratory distress HISTORY OF PRESENT ILLNESS: The patient is a 76 y/o male with a history of renal failure and lung cancer arriving in acute respiratory distress. He has had a cough for a couple weeks. He was dialyzed today and came home around 5:00 PM, 3 hours ago, at which time he was in baseline condition. Around 7:00PM, one hour ago, he went into acute respiratory distress and was transported by EMS as septic. He has associated hypotension (90/57). He has a living will stating he does not wish any life prolonging treatment according to his two sons who are at bedside. Due to his condition he is unable to provide information. Information obtained primarily through past medical records and family. REVIEW OF SYSTEMS: A 10 point review of systems was performed and is negative with the exception of the elements mentioned in the history of present illness. PHYSICAL EXAM: HR, BP, O2 Sat, RR. Temp noted General Appearance: Severe respiratory distress, struggling to breathe, cannot speak in words, not mentating. Clearly agitated and restless. Head: Atraumatic without scalp tenderness or obvious injury Eyes: Pupils equal, round, reactive to light and accommodation, EOMI, no trauma , no injection. Ears: Clear bilaterally, no perforation, normal landmarks Nose: Atraumatic, no rhinorrhea, clear. Throat: There is no erythema or exudates, no lesions, normal tonsils, mucus membranes moist. Neck: Supple, nontender, no lymphadenopathy. Respiratory: Severe distress. Struggling to breathe. Unable to speak. Lungs are moving little air. Cardiovascular: Regular rate and rhythm, no murmurs, rubs, or gallops. Good capillary refill all extremities. Gastrointestinal: Abdomen is soft, nontender, non-distended, no masses, no rebound, no guarding, no peritoneal signs. Musculoskeletal: Normal active ROM of all extremities, atraumatic. Neurological: In distress, unable to speak, alert and agitated. Restless. Skin: No rashes, good turgor, no nodules on palpation. Functional dialysis fistula on upper left arm. Past medical history: End-stage renal failure, metastatic colon cancer, lung cancer, hypertension, cardiac stents Past surgical history: Cyberknife treatment for lung cancer Family history: Non-contributory Social history: Former [employer], former smoker, sons at bedside, Past medical records reviewed including ED visits 04/09/17 and 04/01/17. DIAGNOSTICS/PROCEDURES/CRITICAL CARE TIME: I spent a total of 45 minutes of critical care time including but not limited to obtaining history, performing a physical exam, ordering interventions and the bedside monitoring of those interventions, collecting and interpreting tests and discussion with consultants but not including time spent performing procedures. The 12 lead EKG was interpreted by myself. Multifocal tachycardia. See hard copy and/or "tracemaster" electronic copy for interpretation. Study: Chest X-ray Indication: Respiratory distress Results: After viewing the images myself on the PACS system. My interpretation of the images is: no acute process, COPD, hyperinflation of the lungs. The radiologist interpretation is pending at the time of this dictation. DIFFERENTIAL DIAGNOSIS: The differential diagnosis for the patient's respiratory distress included but was not limited to pneumonia, myocardial infarction, pulmonary edema, congestive heart failure, fluid overload secondary to dialysis, and pulmonary embolus. MEDICAL DECISION MAKING: The patient is a 76 y/o male with a history of end- stage renal failure, lung cancer, and colon cancer arriving via EMS in acute respiratory distress. He has had a cough for a few weeks. He was dialyzed today and return home around 5:00 PM in baseline condition. Around 7:00PM he began having difficulty breathing. EMS responded and transported him as septic. He is visibly struggling to breathe with accessory muscles assisting. He is agitated, unable to speak, and not mentating. He has associated hypoxia and hypotension. He does not have a fever. 2009: I met the patient when he arrived. He was struggling to breathe and was agitated, pulling and fighting against the nasal canula and mask. He was restless and unable to speak. His arteriovenous fistula for dialysis is intact. On exam his lungs are hardly moving any air. I ordered a chest X-ray, iSTAT, and labs to evaluate for possible sepsis. Respiratory therapy called for treatment. I discussed with hi s sons the possibility of intubation. Both sons report he has a living will that indicates he does not want life prolonging measures including intubation. 2017: Preliminary glance over chest X-ray does not indicate a possible etiology for his symptoms. I will further examine once patient is more stabilized. 2024: Patient continues to fight nasal canula and oxygen mask. He is barely tolerating a duo-nebulizer but his O2 remains low. Respiratory will set up BiPAP. Ativan administered for agitation. Blood pressure being taken from forearm and leg due to upper arms having IV (right) and dialysis fistula (left) . Temperature taken again and he remains afebrile. 2030: Patient is not tolerating BiPAP machine. O2 remains low. Respiratory therapy now will try heliox to raise O2 and help the respiratory distress. 2037: Respiratory therapy using heliox in conjunction with Vapotherm. Patient's O2 level is improving but he is still in clear distress. More Ativan administered. 2044: I further examine patient's X-ray and find no apparent cause for his acute respiratory distress though I do note some COPD and hyperinflation. iStat is within reasonable limits. EKG is also non-indicative to etiology of symptoms. Based on results of workup to this point, he likely does not have pneumonia, myocardial infarction, congestive heart failure, or fluid overload. Pulmonary embolus is likely. I plan to CT this patient if I can stabilize him so he is not constantly moving. Sedation and intubation is against the patient' s wishes as confirmed by his two sons. 2051: I consulted with Dr. Laura Pabon, chimney construction supervisor, regarding this patient. We agree that a PE is likely but that imaging is not possible at this point. Plan for ketamine to try and sedate without respiratory depression if condition does not improve. 2111: Ketamine ordered and plan for anticoagulation. I plan to treat this as if it were a PE since imaging confirmation is not possible due to his condition and PE is the only likely cause not ruled out. Patient has a heparin allergy so I am consulting with pharmacy to determine a medication to administer. This patient was transferred to the ICU for further treatment. - Data Points Laboratory Results: Laboratory Results 09/02/17 20:35 09/02/17 20:35 09/02/17 09/02/17 09/02/17 20:35 20:35 20:35 WBC 6.91 10^3/uL 10^3/uL (3.80-9.50) RBC 2.90 10^6/uL L 10^6/uL (4.40-6.38) Hgb 8.4 g/dL L g/dL (13.7-17.5) POC Hgb Hct 25.2 % L % (40.0-51.0) POC Hct MCV 86.9 fL fL (81.5-99.8) MCH 29.0 pg pg (27.9-34.1) MCHC 33.3 g/dL g/dL (32.4-36.7) RDW 18.6 % H % (11.5-15.2) Plt Count 182 10^3/uL 10^3/uL (150-400) MPV 9.1 fL fL (8.7-11.7) Neut % (Auto) 77.1 % H % (39.3-74.2) Lymph % (Auto) 11.7 % L % (15.0-45.0) [place] % (Auto) 10.4 % % (4.5-13.0) Eos % (Auto) 0.4 % L % (0.6-7.6) Baso % (Auto) 0.1 % L % (0.3-1.7) Nucleat RBC Rel Count 0.0 % % (0.0-0.2) Absolute Neuts (auto) 5.32 10^3/uL 10^3/uL (1.70-6.50) Absolute Lymphs (auto) 0.81 10^3/uL L 10^3/uL (1.00-3.00) Absolute Monos (auto) 0.72 10^3/uL 10^3/uL (0.30-0.80) Absolute Eos (auto) 0.03 10^3/uL 10^3/uL (0.03-0.40) Absolute Basos (auto) 0.01 10^3/uL L 10^3/uL (0.02-0.10) Absolute Nucleated RBC 0.00 10^3/uL 10^3/uL (0-0.01) Immature Gran % 0.3 % % (0.0-1.1) Immature Gran # 0.02 10^3/uL 10^3/uL (0.00-0.10) PT 13.9 SEC SEC (12.0-15.0) INR 1.08 (0.83-1.16) APTT 28.6 SEC SEC (23.0-38.0) D-Dimer 2.04 ug/mLFEU H ug/mLFEU (0.00-0.50) VBG Lactic Acid 2.4 mmol/L H mmol/L (0.7-2.1) POC Sodium Sodium POC Potassium Potassium POC Chloride Chloride Carbon Dioxide Anion Gap POC BUN BUN Creatinine POC Creatinine Estimated GFR Glucose POC Glucose Calcium Total Bilirubin Troponin I NT-Pro-B Natriuret Pep 09/02/17 09/02/17 20:35 20:25 WBC RBC Hgb POC Hgb 8.5 gm/dL L gm/dL (13.7-17.5) Hct POC Hct 25 % L % (40-51) MCV MCH MCHC RDW Plt Count MPV Neut % (Auto) Lymph % (Auto) [place] % (Auto) Eos % (Auto) Baso % (Auto) Nucleat RBC Rel Count Absolute Neuts (auto) Absolute Lymphs (auto) Absolute Monos (auto) Absolute Eos (auto) Absolute Basos (auto) Absolute Nucleated RBC Immature Gran % Immature Gran # PT INR APTT D-Dimer VBG Lactic Acid POC Sodium 135 mEq/L mEq/L (134-144) Sodium 133 mEq/L L mEq/L (134-144) POC Potassium 4.1 mEq/L mEq/L (3.3-5.0) Potassium 4.2 mEq/L mEq/L (3.5-5.2) POC Chloride 99 mEq/L mEq/L (97-110) Chloride 98 mEq/L mEq/L (97-110) Carbon Dioxide 24 mEq/l mEq/l (22-31) Anion Gap 11 mEq/L mEq/L (8-16) POC BUN 21 mg/dL mg/dL (7-23) BUN 22 mg/dL mg/dL (7-23) Creatinine 1.3 mg/dL mg/dL (0.7-1.3) POC Creatinine 1.3 mg/dL mg/dL (0.7-1.3) Estimated GFR 54 Glucose 98 mg/dL mg/dL (70-100) POC Glucose 94 mg/dL mg/dL (70-100) Calcium 8.8 mg/dL mg/dL (8.5-10.4) Total Bilirubin 1.1 mg/dL mg/dL (0.1-1.4) Troponin I 0.039 ng/mL H ng/mL (0.000-0.034) NT-Pro-B Natriuret Pep 2110 pg/mL H pg/mL (0-450) Medications Given: Argatroban 250 mg/ Sodium (Chloride) 252.5 mls @ 0 mls/hr IV CONT SOUMYA; Per Protocol PRN Reason: Protocol Stop: 03/01/18 21:59 Last Admin: 09/02/17 22:31 Dose: 252.5 mls Dexmedetomidine/Sodium Chloride (Precedex 4 Mcg/Ml 100 Ml (Premix)) 100 mls @ 0 mls/hr IV CONT SOUMYA; Titrate PRN Reason: Protocol Stop: 03/01/18 22:29 Last Admin: 09/02/17 22:31 Dose: 100 mls Sodium Chloride (Ns) 500 mls @ 500 mls/hr IV ONCE ONE Stop: 09/03/17 00:04 Last Admin: 09/02/17 23:22 Dose: 500 mls Methylprednisolone Sodium Succinate (Solu-Medrol) 60 mg IVP Q6HRS SOUMYA Stop: 03/02/18 00:00 Last Admin: 09/02/17 23:23 Dose: 60 mg Discontinued Medications Magnesium Sulfate (Magnesium Sulf 2 Gm (Premix)) 50 mls @ 50 mls/hr IV EDNOW ONE Stop: 09/02/17 21:50 Last Admin: 09/02/17 20:54 Dose: 50 mls Ketamine HCl (Ketamine) 10 mg IVP EDNOW ONE Stop: 09/02/17 21:11 Last Admin: 09/02/17 21:15 Dose: 10 mg Ketamine HCl (Ketamine) 10 mg IVP ONCE ONE Stop: 09/02/17 21:33 Last Admin: 09/02/17 21:35 Dose: 10 mg Ketamine HCl (Ketamine) 10 mg IVP ONCE ONE Stop: 09/02/17 21:35 Last Admin: 09/02/17 21:50 Dose: 10 mg Ketamine HCl (Ketamine) 10 mg IVP ONCE ONE Stop: 09/02/17 21:37 Last Admin: 09/02/17 22:05 Dose: Not Given Lorazepam (Ativan Injection) 1 mg IVP EDNOW ONE Stop: 09/02/17 20:27 Last Admin: 09/02/17 20:30 Dose: 1 mg Lorazepam (Ativan Injection) 1 mg IVP EDNOW ONE Stop: 09/02/17 20:45 Last Admin: 09/02/17 20:45 Dose: 1 mg Methylprednisolone Sodium Succinate (Solu-Medrol) 125 mg IVP EDNOW ONE Stop: 09/02/17 20:47 Last Admin: 09/02/17 20:48 Dose: 125 mg Point of Care Test Results: 09/02/17 20:25 POC Sodium 135 POC Potassium 4.1 POC Chloride 99 POC BUN 21 POC Creatinine 1.3 POC Glucose 94 Departure - Departure Disposition: [facility] Acute Clinical Impression: Signs and symptoms of severe respiratory distress, 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
[2017-09-02] MEDS ORDERED: IPRATROPIUM/ALBUTEROL 3 ML DEYVIAL ONE ×2 (20:18→20:30)
[2017-09-02] MEDS ORDERED: LORazepam 2 MG/ML INJ IVP ONE ×2 (20:26→20:44)
[2017-09-02] MEDS ORDERED: LORazepam 2 MG/ML INJ ONE (20:26)
--- NOTE | 2017-09-02 20:45 | CPEKG ---
Heart Rate: 112 RR Interval: 536 P-R Interval: 116 QRSD Interval: 84 QT Interval: 348 QTC Interval: 475 P [place]: -46 QRS [place]: 21 T Wave [place]: 66 EKG Severity - BORDERLINE ECG - EKG Impression: SINUS OR ECTOPIC ATRIAL TACHYCARDIA EKG Impression: PROBABLE LEFT ATRIAL ABNORMALITY EKG Impression: BORDERLINE INFERIOR Q WAVES Electronically Signed By: Dread Gutierrez 02-Sep-2017 21:55:13
[2017-09-02] MEDS ORDERED: methylPREDNISolone SOD SUCC 125 MG/2 ML VIAL IVP ONE (20:46)
[2017-09-02] MEDS ORDERED: methylPREDNISolone SOD SUCC 125 MG/2 ML VIAL ONE (20:47)
[2017-09-02 20:48] LABS: % IMMATURE GRANULYOCYTES 0.3 % (0.0-1.1); ABSOLUTE IMMATURE GRANULOCYTES 0.02 10^3/uL (0.00-0.10); ADD DIFF? NO; ADD MORPH? NO; ADD SCAN? NO; ATYPICAL LYMPHOCYTE FLAG 20 (0-99); FRAGMENT RBC FLAG 20 (0-99); HEMATOCRIT 25.2 % (40.0-51.0); HEMOGLOBIN 8.4 g/dL (13.7-17.5); LEFT SHIFT FLG 0 (0-99); LIPEMIA HEMOLYSIS FLAG 80 (0-99); MEAN CELL HEMOGLOBIN CONCENTR. 33.3 g/dL (32.4-36.7); MEAN CELL VOLUME 86.9 fL (81.5-99.8); MEAN PLATELET VOLUME 9.1 fL (8.7-11.7); PLATELET CLUMPS FLAG 10 (0-99); PLATELET COUNT 182 10^3/uL (150-400); RED CELL DISTRIBUTION WIDTH 18.6 % (11.5-15.2)
[2017-09-02] MEDS ORDERED: MAGNESIUM SULF 2 GM/WATER 50 ML BAG IV ONE (20:50)
[2017-09-02] MEDS ORDERED: MAGNESIUM SULF 2 GM/WATER 50 ML IV ONE (20:51)
[2017-09-02 20:59] LABS: APTT 28.6 SEC (23.0-38.0); INR 1.08 (0.83-1.16); PROTIME(PATIENT) 13.9 SEC (12.0-15.0)
[2017-09-02 21:03] LABS: ANION GAP 11 mEq/L (8-16); BILIRUBIN,TOTAL 1.1 mg/dL (0.1-1.4); CALCIUM 8.8 mg/dL (8.5-10.4); CARBON DIOXIDE 24 mEq/l (22-31); CHLORIDE 98 mEq/L (97-110); CREATININE 1.3 mg/dL (0.7-1.3); GLOMERULAR FILTRATION RATE 54; GLUCOSE 98 mg/dL (70-100); POTASSIUM 4.2 mEq/L (3.5-5.2); SODIUM 133 mEq/L (134-144)
[2017-09-02] MEDS ORDERED: KETAMINE 100 MG/10 ML SYR IVP ONE ×2 (21:10→21:36)
[2017-09-02] MEDS ORDERED: KETAMINE 100 MG/10 ML SYR ONE (21:12)
[2017-09-02 21:15] LABS: TROPONIN I 0.039 ng/mL (0.000-0.034)
[2017-09-02] MEDS ORDERED: ONDANSETRON 4 MG/2 ML VIAL IVP PRN (21:27)
[2017-09-02] MEDS ORDERED: ACETAMINOPHEN 325 MG TAB PO PRN (21:27)
[2017-09-02] MEDS ORDERED: ONDANSETRON DISINTEGRATING 4 MG TAB PO PRN (21:27)
[2017-09-02] MEDS ORDERED: KETAMINE 500 MG/10 ML VIAL IVP ONE ×2 (21:32→21:34)
[2017-09-02 21:43] LABS: LACGHOST ORDER
[2017-09-02] MEDS ORDERED: ARGATROBAN 250 MG in NS 250 ML IV SCH (22:00)
[2017-09-02] MEDS ORDERED: DEXMEDETOMIDINE/NS 4MCG/ML 100 ML BTL IV ONE (22:16)
[2017-09-02] MEDS: DEXMEDETOMIDINE IN 0.9 % NACL 100 ML IV SCH (22:31)
[2017-09-02] MEDS ORDERED: levOFLOXACIN 500 MG/DEXTROSE 100 ML IV ONE (22:34)
[2017-09-02] MEDS ORDERED: IPRATROPIUM/ALBUTEROL 3 ML DEYVIAL IH PRN (22:37)
[2017-09-02] MEDS ORDERED: NS 500 ML IV ONE (23:05)
[2017-09-02] MEDS ORDERED: IOPAMIDOL (ISOVUE 370) 100 ML BTL IV ONE (23:14)
[2017-09-02] MEDS: methylPREDNISolone SOD SUCC 125 MG/2 ML VIAL IVP SCH (23:23)
--- NOTE | 2017-09-02 23:30 | GHP ---
[f rep st] HISTORY AND PHYSICAL DATE OF ADMISSION: 09/02/2017 CHIEF COMPLAINT: Acute hypoxia, shortness of breath. HISTORY OF PRESENT ILLNESS: A 76-year-old male with history of metastatic colon cancer, currently on chemotherapy, primary lung cancer,ESRD, CAD brought in by son with acute shortness of breath and hypoxia. He was in his normal state of health this morning and afternoon and underwent dialysis today without issue. When he got home, son said he became very short of breath, agitated, and confused. Patient has not reported any recent cough. No fevers. Has been more cold, asking son to turn up the heat in the house. No nausea, vomiting, diarrhea. Normal appetite. Patient is encephalopathic and not able to participate, thus most of the history is obtained from son and prior clinic and [facility] notes. REVIEW OF SYSTEMS: I completed a 10-point review of systems from son and review of medical records. PAST MEDICAL HISTORY: 1. Metastatic colon cancer, on chemotherapy. 2. Lung cancer status post XRT. 3. History of tobacco abuse. 4. Coronary disease status post PCI. 5. CHF, EF of 50%. 6. Reactive airways disease. 7. End-stage renal disease on dialysis. 8. BPH. 9. Urinary retention. 10. Trace TR. 11. PTSD. 12. Depression. PAST SURGICAL HISTORY: 1. Fistula placement. 2. Colectomy. FAMILY HISTORY: Noncontributory. SOCIAL HISTORY: Lives with his son, Jayjay, in [place]. Quit smoking cigarettes 20 years ago. No alcohol. ALLERGIES: Heparin, unknown allergy; Ancef; Levaquin. HOME MEDICATIONS: 1. Prednisone 10 mg daily. 2. Megace 40 mg daily. 3. Lisinopril 2.5 mg daily. 4. Flomax 0.4. 5. Sodium bicarb 650 mg. 6. Omeprazole 20 mg daily. 7. Iron supplement. 8. Proscar. 9. Diltiazem 30 mg q.8. 10. Clindamycin. 11. Vitamin D3. 12. Zithromax, unclear last taken. 13. Atorvastatin. 14. Aspirin 81 mg. PHYSICAL EXAMINATION: VITAL SIGNS: Temperature 37.8, blood pressure 98/63-150/ 100, heart rate 100s, respirations 31, 90% on 15 L high-flow. GENERAL: Very agitated, restless, thrashing around in bed, trying to pull off mask. HEENT: PERRLA. Dry mucous membranes. CVS: Tachy, regular. LUNGS: Clear anteriorly. Patient not participating in exam. Very difficult exam with agitation. GI: Soft. No grimace with palpation. : No suprapubic tenderness. MUSCULOSKELETAL: Moving all 4 extremities. NEUROLOGIC: Not able to assess. He responds when I say his name. PSYCH: He is alert but not following commands or answering questions. LABORATORY: WBC 6, hemoglobin 8.4, hematocrit 25, platelets 182. D-dimer is 2.04. PT is 13. Lactic acid 2.4. Sodium 133, potassium 4.2, chloride 98, carbon dioxide 24, creatinine is 1.3. Troponin 0.039. BNP is 2110. IMAGING: Chest x-ray personally reviewed by me: Hyperexpanded. No overt effusion or opacity. EKG is personally reviewed by me: Sinus tachycardia. - Echocardiogram, 04/03/2017: LVEF is low normal with EF of 50%. There was inferior and inferoseptal hypokinesis. LA is mildly dilated. Trace TR, trace MR. No old to compare. ASSESSMENT AND PLAN: 1. Acute hypoxic respiratory failure: high concern for PE with elevated dimer, tachycardia, and malignancy. Consider COPD exacerbation, infection, cardiac. No infectious symptoms, per sons. No overt infiltrate on CXR. Check viral PCR, procalcitonin. Stat echo, LE doppler, and CTA when less agitated. Empirically treat with antibiotics, given critical illness. IV steroids, Duonebs. Has heparin allergy. IV Argatroban since ESRD. Can change to Pradaxa once taking orals. He does not want to be intubated and this was confirmed by sons. Had long discussion with sons, (Margret is MDPOA) and said no CPR or invasive procedures, they are okay with medications, Bipap 2. End-stage renal disease. Underwent HD today without issue. Resume home medications when clinically stable. 3. Tachycardia: concern for PE, agitation contributing. 4. Indeterminate troponin: no reported CP per sons. h/o CAD, telemetry, echo pending. 5. BPH: history urinary retention. Place [facility]. 6. History of tobacco abuse. Has not used in 20 years. 7. History of metastatic colon cancer/primary lung cancer: primary oncologist is Dr. Mitchell. Currently on chemotherapy. 8. Acute encephalopathy. Likely due to respiratory failure. Consider infection. Empiric CAP coverage, though CXR not convincing for PNA. Resp PCR, UA pending. 9. Deep vein thrombosis prophylaxis on argatroban. 10. Diet. N.p.o. Disp: warrants ICU admission, given acute hypoxic respiratory failure, critical state, requiring BiPAP, IV anticoagulation. I discussed the case with Dr. Bowie , fish fryer, on the phone and agrees with plan as stated above. Critical care time spent: 75 min examining patient, reviewing records, d/w Dr. Bowie and pablo. /[id number]/MODL MTDD
[2017-09-02] MEDS: AZITHROMYCIN IV 500 MG in D5W 250 ML IV SCH (23:43)
[2017-09-02] MEDS: IPRATROPIUM/ALBUTEROL 3 ML DEYVIAL IH SCH (23:43)
[2017-09-02 23:47] LABS: COLOR YELLOW; LEUKOCYTE ESTERASE,URINE NEGATIVE (NEGATIVE); NITRITE,URINE NEGATIVE (NEGATIVE)
[2017-09-02 23:56] LABS: BACTERIA TRACE /hpf (NONE SEEN); RBC,URINE 50-182 /hpf (0-3); WBC,URINE 15-25 /hpf (0-3)
[2017-09-03] MEDS: DEXMEDETOMIDINE IN 0.9 % NACL 100 ML IV SCH (03:04)
[2017-09-03] MEDS: methylPREDNISolone SOD SUCC 125 MG/2 ML VIAL IVP SCH ×3 (05:39→18:14)
[2017-09-03 06:01] LABS: HEMATOCRIT 21.8 % (40.0-51.0); HEMOGLOBIN 7.1 g/dL (13.7-17.5); MEAN CELL HEMOGLOBIN 29.1 pg (27.9-34.1); MEAN CELL HEMOGLOBIN CONCENTR. 32.6 g/dL (32.4-36.7); MEAN CELL VOLUME 89.3 fL (81.5-99.8); RED BLOOD CELL COUNT 2.44 10^6/uL (4.40-6.38)
[2017-09-03] MEDS: IPRATROPIUM/ALBUTEROL 3 ML DEYVIAL IH SCH ×4 (06:01→23:52)
--- NOTE | 2017-09-03 06:14 | PDMN ---
Medical Necessity Medical necessity: C/M review: est. > 2 MN LOS for eval and TX of acute and persistent hypoxic respiratory failure, tachycardia, high concern for PE, acute encephalopathy, requiring planned echocardiogram, IV Azithramycin, IV Ceftriaxone, IV, IV anticoagulation, Duonebs, pulse oximetry, supplemental O2 BiPAP, NPO in ICU, comorbid hx tobacco abuse, metastatic colon cancer/ primary lung cancer on current chemotherapy, ESRD on chronic dialysis, BPH, CAD S/P PCI , CHF, reactive airways disease, PTSD, depression, urinary retention per H/P.
[2017-09-03 06:35] LABS: ANION GAP 10 mEq/L (8-16); CALCIUM 7.9 mg/dL (8.5-10.4); CARBON DIOXIDE 25 mEq/l (22-31); CHLORIDE 99 mEq/L (97-110); CREATININE 1.5 mg/dL (0.7-1.3); GLOMERULAR FILTRATION RATE 45; GLUCOSE 177 mg/dL (70-100); POTASSIUM 4.7 mEq/L (3.5-5.2); SODIUM 134 mEq/L (134-144)
--- NOTE | 2017-09-03 08:36 | ECHO ---
[email or web address] [address] [address] Main: [phone] Fax: Transthoracic Echocardiogram Name: KEVIN RADER MR#: [id number] Study Date: 09/02/2017 Study Time: 11:31 PM Date of : 1940 Age: 76 year(s) Height: 175.3 cm (69 in.) Weight: 64.86 kg (143 lb.) BSA: 1.79 m2 Gender: Male Examination: Echo Indication: Eval for right heart strain 90 Image Quality: Contrast: Requested by: Mihaela Pabon BP: 90 mmHg/42 mmHg Heart Rate: Rhythm: Indication: Eval for right heart strain Procedure Staff [employer]: Tayler Rutledge Reading Physician: Kaye Woods Requesting Provider: Conclusions: Normal size left ventricle. The ejection fraction is estimated to be 60-65 %. No regional wall motion abnormality. Normal size right ventricle. Normal RV function. Trivial to mild mitral regurgitation. Pulmonary artery pressure is not obtained due to inadequate TR jet. No pericardial effusion. Measurements: Chambers Valvular Assessment AV/MV Valvular Assessment TV/PV Normal Normal Normal Name Value Range Name Value Range Name Value Range EF Range: 60-65 % AV Vmax: 1.28 m/s (1 m/s-1.7 TR Vmax: 2.77 mm/s ( - ) m/s) TR PGmax: 31 mmHg ( - ) AV maxP mmHg ( - ) syst. PAP: 36 mmHg ( - ) MV E Vmax: 0.61 m/s ( - ) MV A Vmax: 0.90 m/s ( - ) MV E/A: 0.68 ( - ) Continued Measurements: Valvular Assessment AV/MV Valvular Assessment TV/PV Name Value Name Value MV E/E' Septal: 10.00 CVP (est.): 5 mmHg MV E/E' Lateral: 6.10 Patient: KEVIN RADER Study Date: 09/02/2017 Page 1 of 2 11:31 PM Findings: Left Ventricle: Normal size left ventricle. The ejection fraction is estimated to be 60-65 %. No regional wall motion abnormality. Right Ventricle: Normal size right ventricle. Normal RV function. Left Atrium: The left atrium is normal in size. Right Atrium: The right atrium is normal in size. Mitral Valve: The mitral valve is normal in appearance. Trivial to mild mitral regurgitation. Aortic Valve: The aortic valve is normal in appearance. Tricuspid Valve: The tricuspid valve appears normal. Trivial tricuspid valve regurgitation. Pulmonary artery pressure is not obtained due to inadequate TR jet. Pericardium: No pericardial effusion. (No Signature Object) Patient: KEVIN RADER Study Date: 09/02/2017 Page 2 of 2 11:31 PM [id number]
--- NOTE | 2017-09-03 09:03 | HOSPPROG ---
Hospitalist Progress Note Assessment/Plan: DIAGNOSES: -acute sepsis -acute encephalopathy with severe agitation and requiring extensive doses of sedation medicines for safety -acute hypoxemic respiratory failure with pneumonia and history of reactive airway disease -community aquired pneumonia -pyuria with possible urinary tract infection -end-stage renal disease on dialyze September 01 and Monday schedule -metastatic colon cancer on chemotherapy, history of lung cancer -history of heparin allergy, receiving argatroban for DVT prophylaxis PLANS: -continue current antibiotics and follow cultures closely -taper dose of steroids as rapidly as possible given his respiratory issues -will use sedating medicines and other [employer]IGHW[employer] PA[employer] active medicines as sparingly as possible, but may need further sedation for control of agitation if his unsafe -fall risk precautions -continue argatroban for DVT prophylaxis -stress ulcer prophylaxis -home medicines have not been reconciled but will follow up for that and continue appropriate medicines once completed Reviewed in detail today with Dr. Hitesh Bowie Seen also on multidisciplinary rounds SUBJECTIVE: The patient had severe agitation through most of the night. He required sedating medicines and constant presence of family and staff to control safety issues. In the ER he received several doses of ketamine and 2 doses of Ativan which were ineffective. He was transferred to the ICU where Precedex drip was started and was only after 2 boluses and further infusion that he finally came under control and get some rest. At this time he is now on lower dose of Precedex and is awake and, relaxed, interacting appropriately. He denies pain, nausea, shortness of breath, or other bothersome symptoms at this time though he is disoriented and it is not entirely clear that he is able to accurately assess how he feels physically. OBJECTIVE Vitals reviewed: Initial tachycardia has now resolved, blood pressures have remained good, T-max 38.7degrees, respirations stable at present Mgmt Specialist, my review: Sinus Exam: alert and interacting appropriately, relaxed, but fairly disoriented. He knows he is in [place] but can't say what type of building he is in or why he is here or for how long. Gives his son's name is Dylan which is the patient's name but not the son's name. Continue he lives in [place] but can't tell me anything else about where he lives skin warm dry color ok resps not labored lungs diminished breath sounds with some mild expiratory wheezes heart regular abd soft nondistended nontender, bowel sounds present limbs warm, no edema iv site ok I reviewed the CT scan images from last evening, and there is infiltrate in the inferior portion of the right upper lobe as well as some other patchy areas scattered through lungs. I do not see any pulmonary emboli, the radiologist report reads there are no PEs and central vessels but more peripheral vessels are poorly visualized Doppler ultrasound of legs no DVT Laboratory data: Creatinine at 1.5, other chemistry stable Procalcitonin was 0.68 Cultures so far with no growth Respiratory pathogen panel is pending Objective: Vital Signs Temp Pulse Resp BP Pulse Ox 36.3 C 67 15 101/43 L 100 09/03/17 08:00 09/03/17 08:00 09/03/17 08:00 09/03/17 08:00 09/03/17 08:00 Microbiology 09/03/17 00:01 Respiratory Panel (PCR) - Final Nasal, Sinus - Swab No Organism Detected Laboratory Results 09/03/17 05:45 09/03/17 06:00 09/02/17 09/03/17 09/04/17 06:59 06:59 06:59 Intake Total 991 Output Total 800 Balance 191 PT 13.9 SEC (12.0-15.0) 09/02/17 20:35 INR 1.08 (0.83-1.16) 09/02/17 20:35 - Time Spent With Patient Time Spent with Patient: greater than 35 minutes Time Spent with Patient: Greater than 35 minutes spent on this patients care, greater than 50% of time spent counseling, educating, and coordinating care regarding the above mentioned plan. ICD10 Worksheet Patient Problems: Problems Problem Status Onset Signs and symptoms of severe respiratory distress Acute Chronic Disease Mgmt/Transitional Care Acute Chronic renal failure Acute 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
[2017-09-03] MEDS ORDERED: ARGATROBAN 250 MG in NS 250 ML IV SCH (09:30)
[2017-09-03] MEDS: AZITHROMYCIN IV 500 MG in D5W 250 ML IV SCH (09:45)
[2017-09-03] MEDS ORDERED: PROCHLORPERAZINE MALEATE 10 MG TAB PO PRN (14:54)
--- NOTE | 2017-09-03 15:02 | GCON ---
[f rep st] CONSULTATION PULMONARY/CRITICAL CARE CONSULTATION DATE OF CONSULTATION: 09/03/2017 REFERRING PHYSICIAN: Marty Wood MD REASON FOR CONSULTATION: Evaluation and management of hypoxemia. HISTORY OF PRESENT ILLNESS: The patient Geetha is a 76-year-old male with a history of metastatic co ej cancer currently on chemotherapy, primary lung cancer, coronary artery disease, and end-stage jelani al disease, who reported feeling normal when he underwent dialysis yesterday. After getting home wit h his son, he became very short of breath, agitated and confused. He was brought to the emergency de partment where he was alert, but unable to follow any commands. He became quite agitated and was sta rted on a Precedex drip as well as Ativan and ketamine. Overnight, his sedation was weaned off. He currently is calm. He denies any pain or dyspnea. PAST MEDICAL HISTORY: 1. Metastatic colon cancer, on chemotherapy. 2. Lung cancer status post radiation therapy. 3. Coronary artery disease status post PCI. 4. Congestive heart failure with an ejection fraction of 50%. 5. History of reactive airways disease. 6. End-stage renal disease, on dialysis. 7. BPH. 8. Urinary retention. MEDICATIONS: At the time of admission include sodium bicarbonate, tamsulosin, finasteride, atorvasta tin, aspirin, omeprazole, lisinopril, Megace, prednisone 20 mg daily, Compazine, benzonatate, codeine /guaifenesin. Here in the hospital, he has been started on argatroban, azithromycin, ceftriaxone and DuoNeb. ALLERGIES: Levofloxacin, Ancef and heparin. SOCIAL HISTORY: The patient lives with his son. He has an extensive history of smoking, which he st opped 20 years ago. FAMILY HISTORY: Unremarkable. REVIEW OF SYSTEMS: A 10-point review of systems adds nothing to the history of present illness. PHYSICAL EXAMINATION: GENERAL: The patient is awake and alert, in no acute distress. VITAL SIGNS: Blood pressure is 117/64 with a heart rate of 93. He is currently afebrile. He had a temperature o f 38.7 at 10:30 last night. Oxygen saturation is 99% on 6 L of oxygen. HEENT: Normocephalic and at raumatic. No icterus. NECK: No adenopathy. Trachea is midline. CHEST: He has some wheezes and r ales in the right base. CARDIAC: Regular rate and rhythm, without murmur. ABDOMEN: Soft and nonte nder. Bowel sounds are present. EXTREMITIES: No clubbing, cyanosis, or edema. NEURO: The patient is awake and alert. He has no gross motor or sensory deficits. LABORATORY: White blood count is 3.8 coming down from 6.9, hemoglobin 7.1 coming down from 8.4, plat elet count is 129. Chemistry group is remarkable for a creatinine of 1.5 and a BUN of 25. His tropo cindy is 0.049. Procalcitonin is 0.68. Venous lactate is 0.6 down from 2.4. Urinalysis shows 15-25 w sukhwinder blood cells and 50-180 red blood cells. IMAGING: A chest x-ray shows some vascular prominence. A CT scan of the chest is negative for pulmo nary embolism, although distal vessels are not well seen due to motion artifact. In the right infrah ilar area, there is a hilar mass. There are some patchy infiltrates in the right lower lobe. These basilar infiltrates were not present on the CT scan of the abdomen from this past summer. Images rev iewed by me. ASSESSMENT: 1. Transient dyspnea, fever and agitation. The patient's symptoms have essentially resolved, althou gh he continues to have some mild hypoxemia. Possibilities include a COPD exacerbation, transient ba cteremia related to dialysis, and acute (now resolved) cardiac event such as arrhythmia or ischemia. The patient is currently doing well on nebulized bronchodilators, steroids as well as antibiotics. 2. Acute encephalopathy. This is likely multifactorial, with fever, sundowning when being brought i nto the emergency department, as well as the use of Ativan. 3. Lung mass. This likely represents the patient's known lung cancer. The basilar infiltrates are new and could represent an acute superimposed pneumonia. RECOMMENDATIONS: Continue steroids, antibiotics, and nebulized bronchodilators. Hopefully we can ke ep him off sedation, particularly benzodiazepines. If he does well during the day, he could potentiguy calderay be transferred to the floor and discharged fairly soon on p.o. medications. /[id number]/MODL
[2017-09-03] MEDS: FINASTERIDE 5 MG TAB PO SCH (22:34)
[2017-09-04] MEDS: methylPREDNISolone SOD SUCC 125 MG/2 ML VIAL IVP SCH ×2 (01:31→06:36)
[2017-09-04] MEDS ORDERED: ACETAMINOPHEN/CODEINE 300/30MG TAB PO ONE (02:02)
[2017-09-04] MEDS: IPRATROPIUM/ALBUTEROL 3 ML DEYVIAL IH SCH ×3 (05:54→16:47)
[2017-09-04 08:23] LABS: % IMMATURE GRANULYOCYTES 1.6 % (0.0-1.1); ABSOLUTE IMMATURE GRANULOCYTES 0.16 10^3/uL (0.00-0.10); ADD DIFF? NO; ADD MORPH? NO; ADD SCAN? NO; ATYPICAL LYMPHOCYTE FLAG 0 (0-99); FRAGMENT RBC FLAG 20 (0-99); HEMATOCRIT 21.7 % (40.0-51.0); HEMOGLOBIN 7.1 g/dL (13.7-17.5); LEFT SHIFT FLG 10 (0-99); LIPEMIA HEMOLYSIS FLAG 80 (0-99); MEAN CELL HEMOGLOBIN 29.1 pg (27.9-34.1); MEAN CELL HEMOGLOBIN CONCENTR. 32.7 g/dL (32.4-36.7); MEAN CELL VOLUME 88.9 fL (81.5-99.8); MEAN PLATELET VOLUME 9.6 fL (8.7-11.7); PLATELET CLUMPS FLAG 20 (0-99); PLATELET COUNT 159 10^3/uL (150-400); RED BLOOD CELL COUNT 2.44 10^6/uL (4.40-6.38); RED CELL DISTRIBUTION WIDTH 19.5 % (11.5-15.2)
--- NOTE | 2017-09-04 08:55 | HOSPPROG ---
Hospitalist Progress Note Assessment/Plan: #Acute hypoxic resp failure: COPD exacerbation vs. PNA: Change to oral steroids , cont abx. No PE, no echo #Metastatic colon cancer/lung cancer: on chemo #ESRD on HD: HD tomorrow per renal. Cont bicarb #CAD: statin, ASA #BPH: Flomax #HTN: Lisinopril #Cough: Robitussin #Diet: renal #Disp: cont inpatient admission for Duonebs, dialysis Subjective: breathing improved. Coughing a lot Objective: Vital Signs Temp Pulse Resp BP Pulse Ox 36.7 C 95 18 103/51 L 100 09/04/17 01:25 09/04/17 06:04 09/04/17 06:04 09/04/17 04:00 09/04/17 04:00 Microbiology 09/03/17 00:01 Respiratory Panel (PCR) - Final Nasal, Sinus - Swab No Organism Detected Laboratory Results 09/04/17 08:00 09/03/17 09/04/17 09/05/17 05:59 05:59 05:59 Intake Total 991 1754 Output Total 800 675 500 Balance 191 1079 -500 PT 13.9 SEC (12.0-15.0) 09/02/17 20:35 INR 1.08 (0.83-1.16) 09/02/17 20:35 - Physical Exam Constitutional: no apparent distress, chronically ill appearing Eyes: PERRL Ears, Nose, Mouth, Throat: moist mucous membranes Cardiovascular: regular rate and rhythym Respiratory: reduced air movement, expiratory wheeze Gastrointestinal: normoactive bowel sounds Genitourinary: no bladder fullness Skin: warm Musculoskeletal: full muscle strength Neurologic: AAOx3 Psychiatric: interacting appropriately ICD10 Worksheet Patient Problems: Problems Problem Status Onset Signs and symptoms of severe respiratory distress Acute Chronic Disease Mgmt/Transitional Care Acute Chronic renal failure Acute 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
[2017-09-04] MEDS ORDERED: NON-FORMULARY NEW DRUG (Omeprazole [Prilosec 20 Mg] 20 MG) PO SCH (09:00)
[2017-09-04] MEDS ORDERED: LISINOPRIL 2.5 MG TAB PO SCH (09:00)
[2017-09-04] MEDS ORDERED: MEGESTROL ACETATE 200 MG PO SCH (09:00)
[2017-09-04] MEDS ORDERED: predniSONE 10 MG TAB PO SCH (09:00)
[2017-09-04 09:04] LABS: ANION GAP 12 mEq/L (8-16); CALCIUM 8.5 mg/dL (8.5-10.4); CARBON DIOXIDE 24 mEq/l (22-31); CHLORIDE 99 mEq/L (97-110); CREATININE 1.9 mg/dL (0.7-1.3); GLOMERULAR FILTRATION RATE 35; GLUCOSE 159 mg/dL (70-100); POTASSIUM 3.8 mEq/L (3.5-5.2); SODIUM 135 mEq/L (134-144)
--- NOTE | 2017-09-04 09:13 | PDINTPN ---
Senior Bookkeeper Progress Note Assessment/Plan: Assessment: * Dyspnea and hypoxemia-markedly improved. Oxygen requirements have diminished. * Acute encephalopathy-this is improved * Lung mass * Metastatic colon cancer * Coronary artery disease * Congestive heart face * End-stage renal disease on dialysis Plan: Okay for transfer to floor. Continue steroids antibiotics PT and OT Subjective: Sitting up in chair conversing with his son. States his breathing is improved. There is minimal cough. Objective: Vital Signs Temp Pulse Resp BP Pulse Ox 36.7 C 95 18 103/51 L 100 09/04/17 01:25 09/04/17 06:04 09/04/17 06:04 09/04/17 04:00 09/04/17 04:00 Microbiology 09/03/17 00:01 Respiratory Panel (PCR) - Final Nasal, Sinus - Swab No Organism Detected Laboratory Results 09/04/17 08:00 09/04/17 08:00 09/03/17 09/04/17 09/05/17 05:59 05:59 05:59 Intake Total 991 1754 Output Total 800 675 500 Balance 191 1079 -500 PT 13.9 SEC (12.0-15.0) 09/02/17 20:35 INR 1.08 (0.83-1.16) 09/02/17 20:35 Physical Exam - Physical Exam General Appearance: alert, no apparent distress EENT: PERRL/EOMI, normal ENT inspection Neck: non-tender, full range of motion, supple, normal inspection Respiratory: crackles (Bibasilar), No respiratory distress, No wheezing Cardiac/Chest: normal peripheral pulses, regular rate, rhythm, systolic murmur Peripheral Pulses: 2+: carotid (R), carotid (L), femoral (R), femoral (L), dorsalis-pedis (R), dorsalis-pedis (L) Abdomen: normal bowel sounds, non-tender, soft Male Genitalia: deferred Rectal: deferred Skin: normal color, warm/dry Extremities: normal range of motion, non-tender, normal inspection, normal capillary refill Neuro/Psych: alert ICD10 Worksheet Patient Problems: Problems Problem Status Onset Signs and symptoms of severe respiratory distress Acute Chronic Disease Mgmt/Transitional Care Acute Chronic renal failure Acute 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
[2017-09-04] MEDS: ATORVASTATIN CALCIUM 40 MG TAB PO SCH (09:36)
[2017-09-04] MEDS: LISINOPRIL 5 MG TAB PO SCH (09:36)
[2017-09-04] MEDS: ASPIRIN 81 MG CHEWABLE TAB PO SCH (09:36)
[2017-09-04] MEDS: CHOLECALCIFEROL VIT D3 2,000 UNITS TAB/CAP PO SCH (09:36)
[2017-09-04] MEDS: TAMSULOSIN HCL 0.4 MG CAP PO SCH (09:39)
[2017-09-04] MEDS: AZITHROMYCIN IV 500 MG in D5W 250 ML IV SCH (09:40)
[2017-09-04] MEDS: PANTOPRAZOLE SODIUM 40 MG TAB PO SCH (09:42)
[2017-09-04] MEDS: MEGESTROL ACETATE 400 MG/10 ML UDL PO SCH (09:46)
[2017-09-04] MEDS: SODIUM BICARBONATE 650 MG TAB PO SCH (12:23)
[2017-09-04] MEDS: guaiFENesin 600 MG TAB.ER PO SCH (20:07)
[2017-09-04] MEDS: FINASTERIDE 5 MG TAB PO SCH (20:07)
[2017-09-05] MEDS: IPRATROPIUM/ALBUTEROL 3 ML DEYVIAL IH SCH ×4 (01:38→17:12)
[2017-09-05] MEDS: CHOLECALCIFEROL VIT D3 2,000 UNITS TAB/CAP PO SCH (09:24)
[2017-09-05] MEDS: ATORVASTATIN CALCIUM 40 MG TAB PO SCH (09:24)
[2017-09-05] MEDS: guaiFENesin 600 MG TAB.ER PO SCH ×2 (09:25→20:03)
[2017-09-05] MEDS: PANTOPRAZOLE SODIUM 40 MG TAB PO SCH (09:25)
[2017-09-05] MEDS: LISINOPRIL 5 MG TAB PO SCH (09:25)
[2017-09-05] MEDS: AZITHROMYCIN 250 MG TAB PO SCH (09:25)
[2017-09-05] MEDS: TAMSULOSIN HCL 0.4 MG CAP PO SCH (09:26)
[2017-09-05] MEDS: ASPIRIN 81 MG CHEWABLE TAB PO SCH (09:26)
[2017-09-05] MEDS: predniSONE 10 MG TAB PO SCH (09:26)
[2017-09-05] MEDS: MEGESTROL ACETATE 400 MG/10 ML UDL PO SCH (11:02)
--- NOTE | 2017-09-05 12:41 | HOSPPROG ---
Hospitalist Progress Note Assessment/Plan: #Acute on chronic hypoxic resp failure: COPD exacerbation vs. PNA. Change to oral steroids, cont abx. No PE, no echo -Day 4/5 abx. Cont nebs #Metastatic colon cancer/lung cancer: on chemo #ESRD on HD: HD today #Deconditioning: PT to evaluate. Cont bicarb #CAD: statin, ASA #BPH: Flomax #HTN: Lisinopril #Cough: Robitussin #Diet: renal #Disp: cont inpatient admission for Duonebs, dialysis. May DC in 1-2 days Subjective: still c/o cough Objective: Vital Signs Temp Pulse Resp BP Pulse Ox 36.2 C 97 18 124/78 H 98 09/05/17 11:44 09/05/17 11:44 09/05/17 11:44 09/05/17 11:44 09/05/17 11:44 Microbiology 09/03/17 02:20 Urine Culture - Final Urine,Catheterized Staphylococcus Epidermidis Laboratory Results 09/04/17 08:00 09/04/17 08:00 09/04/17 09/05/17 09/06/17 05:59 05:59 05:59 Intake Total 1754 450 Output Total 675 1500 Balance 1079 -1050 PT 13.9 SEC (12.0-15.0) 09/02/17 20:35 INR 1.08 (0.83-1.16) 09/02/17 20:35 - Physical Exam Constitutional: cachectic Eyes: PERRL Ears, Nose, Mouth, Throat: moist mucous membranes Cardiovascular: regular rate and rhythym Respiratory: reduced air movement, expiratory wheeze, rhonchi Gastrointestinal: normoactive bowel sounds Genitourinary: no bladder fullness Skin: warm Musculoskeletal: full muscle strength Neurologic: AAOx3, CN II-XII Intact Psychiatric: interacting appropriately ICD10 Worksheet Patient Problems: Problems Problem Status Onset Signs and symptoms of severe respiratory distress Acute Chronic Disease Mgmt/Transitional Care Acute Chronic renal failure Acute 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
--- NOTE | 2017-09-05 14:24 | ASMTCMCOM ---
CM Note CM Note Notes: PT and OT have been ordered and awaiting recommendations. Needs are TBD at this time. CM to follow for d/c needs. 09/04/2017 Initial CM note 76 year old male admitted for respiratory distress possible pulmonary embolus. He has a hx of colon ca with mets to liver, lung ca, PNA, CRF-dialysis, CAD, CHF, EF=50%, Sepsis. CM to follow for discharge needs. Date Signed: 09/05/2017 02:23 PM Electronically Signed By:CAROLYN Finney
[2017-09-05] MEDS: SODIUM BICARBONATE 650 MG TAB PO SCH (16:34)
[2017-09-05] MEDS ORDERED: MAGNESIUM HYDROXIDE 30 ML UDCUP PO PRN (17:27)
[2017-09-05] MEDS ORDERED: BISACODYL 10 MG SUPP PR PRN (17:27)
[2017-09-05] MEDS ORDERED: POLYETHYLENE GLYCOL 3350 17 GM PKT PO PRN (17:27)
[2017-09-05] MEDS ORDERED: LACTULOSE 20 GM/30 ML UDCUP PO PRN (17:27)
[2017-09-05] MEDS: SENNOSIDES/DOCUSATE SODIUM TAB PO SCH (20:03)
[2017-09-05] MEDS: FINASTERIDE 5 MG TAB PO SCH (20:05)
[2017-09-06] MEDS: IPRATROPIUM/ALBUTEROL 3 ML DEYVIAL IH SCH ×5 (00:44→21:47)
[2017-09-06 05:16] LABS: HEMATOCRIT 26.5 % (40.0-51.0); HEMOGLOBIN 8.8 g/dL (13.7-17.5); MEAN CELL HEMOGLOBIN 29.4 pg (27.9-34.1); MEAN CELL HEMOGLOBIN CONCENTR. 33.2 g/dL (32.4-36.7); MEAN CELL VOLUME 88.6 fL (81.5-99.8); RED BLOOD CELL COUNT 2.99 10^6/uL (4.40-6.38); RED CELL DISTRIBUTION WIDTH 19.4 % (11.5-15.2)
[2017-09-06 05:34] LABS: ANION GAP 9 mEq/L (8-16); CALCIUM 8.4 mg/dL (8.5-10.4); CARBON DIOXIDE 29 mEq/l (22-31); CHLORIDE 98 mEq/L (97-110); CREATININE 1.7 mg/dL (0.7-1.3); GLOMERULAR FILTRATION RATE 39; GLUCOSE 114 mg/dL (70-100); POTASSIUM 4.2 mEq/L (3.5-5.2); SODIUM 136 mEq/L (134-144)
[2017-09-06] MEDS: predniSONE 10 MG TAB PO SCH (08:19)
[2017-09-06] MEDS: TAMSULOSIN HCL 0.4 MG CAP PO SCH (08:19)
[2017-09-06] MEDS: PANTOPRAZOLE SODIUM 40 MG TAB PO SCH (08:20)
[2017-09-06] MEDS: guaiFENesin 600 MG TAB.ER PO SCH ×2 (08:20→21:45)
[2017-09-06] MEDS: AZITHROMYCIN 250 MG TAB PO SCH (08:20)
[2017-09-06] MEDS: SENNOSIDES/DOCUSATE SODIUM TAB PO SCH ×2 (08:20→21:45)
[2017-09-06] MEDS: CHOLECALCIFEROL VIT D3 2,000 UNITS TAB/CAP PO SCH (08:20)
[2017-09-06] MEDS: LISINOPRIL 5 MG TAB PO SCH (08:21)
[2017-09-06] MEDS: ATORVASTATIN CALCIUM 40 MG TAB PO SCH (08:21)
[2017-09-06] MEDS: MEGESTROL ACETATE 400 MG/10 ML UDL PO SCH (08:22)
--- NOTE | 2017-09-06 09:04 | HOSPPROG ---
Hospitalist Progress Note Assessment/Plan: #Acute blood loss anemia: hematuria. Maybe delgado trauma? Pull delgado today. Transfused 1 unit RBC. Repeat H/H, UA. Hold AC an ASA. If cannot void, will need to replace delgado with Urology FU #Acute on chronic hypoxic resp failure: COPD exacerbation vs. PNA. Change to oral steroids, cont abx. No PE, no echo -completed 5 days abx today #Metastatic colon cancer/lung cancer: on chemo #ESRD on HD: HD yesterday #Deconditioning: PT to evaluate. #Depression: start SSRI #CAD: statin, ASA #BPH: Flomax #HTN: Lisinopril #Cough: Robitussin #Diet: renal #Disp: cont inpatient admission for Duonebs, dialysis. May DC in 1-2 days Subjective: hematuria. No bladder spasms. Mood been depressed since passed over a year ago and wants treatment Objective: Vital Signs Temp Pulse Resp BP Pulse Ox 36.6 C 98 18 137/75 H 98 09/06/17 08:00 09/06/17 08:00 09/06/17 08:00 09/06/17 08:21 09/06/17 08:00 Microbiology 09/03/17 02:20 Urine Culture - Final Urine,Catheterized Staphylococcus Epidermidis Laboratory Results 09/06/17 05:00 09/06/17 05:00 09/05/17 09/06/17 09/07/17 05:59 05:59 05:59 Intake Total 450 450 Output Total 1500 600 Balance -1050 -150 PT 13.9 SEC (12.0-15.0) 09/02/17 20:35 INR 1.08 (0.83-1.16) 09/02/17 20:35 - Physical Exam Constitutional: no apparent distress Eyes: PERRL Ears, Nose, Mouth, Throat: moist mucous membranes Cardiovascular: regular rate and rhythym, no murmur, rub, or gallop Respiratory: reduced air movement, other (min expiratory wheezing today) Gastrointestinal: normoactive bowel sounds, soft, non-tender abdomen Genitourinary: delgado in urethra (bloody urine, no suprapubic TTP) Skin: warm Musculoskeletal: full muscle strength Neurologic: AAOx3, CN II-XII Intact Psychiatric: interacting appropriately ICD10 Worksheet Patient Problems: Problems Problem Status Onset Signs and symptoms of severe respiratory distress Acute Chronic Disease Mgmt/Transitional Care Acute Chronic renal failure Acute 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
[2017-09-06 09:35] LABS: COLOR RED; LEUKOCYTE ESTERASE,URINE 2+ (NEGATIVE); NITRITE,URINE NEGATIVE (NEGATIVE)
[2017-09-06 10:44] LABS: RBC,URINE >182 /hpf (0-3)
[2017-09-06] MEDS: SERTRALINE HCL 25 MG TAB PO SCH (10:59)
[2017-09-06] MEDS: SODIUM BICARBONATE 650 MG TAB PO SCH (13:00)
[2017-09-06 13:29] LABS: HEMATOCRIT 29.9 % (40.0-51.0); HEMOGLOBIN 9.7 g/dL (13.7-17.5)
--- NOTE | 2017-09-06 13:34 | SOAPPROG ---
SOAP Progress Note Assessment/Plan: Assessment: 1. esrd: dialyzed yesterday on typical TTS schedule. Pt has only been dialyzing /Mon, and typically skips . He has no interest in dialyzing here tomorrow and states he will refuse if I put him on the schedule. In light of this, will tentatively plan on his next hd here Monday if he remains admitted. 2. MS changes: appears to be at b/l. 3. Fever/sob: on rx for pneumonia, copd. 4. colon/lung ca: has deteriorated markedly since I last saw him about a year ago. Continuing on chemo. Plan: 09/06/17 13:31 Subjective: Uneventful hd yesterday. Pt feeling better and MS seems back to b/l. Having ongoing hematuria. Objective: Vital Signs Temp Pulse Resp BP Pulse Ox 36.6 C 80 16 149/86 H 99 09/06/17 12:00 09/06/17 12:00 09/06/17 12:00 09/06/17 12:00 09/06/17 12:00 Microbiology 09/03/17 02:20 Urine Culture - Final Urine,Catheterized Staphylococcus Epidermidis Laboratory Results 09/06/17 13:05 09/06/17 05:00 09/05/17 09/06/17 09/07/17 05:59 05:59 05:59 Intake Total 450 450 Output Total 1500 600 Balance -1050 -150 PT 13.9 SEC (12.0-15.0) 09/02/17 20:35 INR 1.08 (0.83-1.16) 09/02/17 20:35 Physical Exam - Physical Exam General Appearance: no apparent distress, cachetic Respiratory: decreased breath sounds (R base) Cardiac/Chest: regular rate, rhythm Extremities: pedal edema (none), other (+patent LUE avf) ICD10 Worksheet Patient Problems: Problems Problem Status Onset Signs and symptoms of severe respiratory distress Acute Chronic Disease Mgmt/Transitional Care Acute Chronic renal failure Acute 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
[2017-09-06] MEDS: FINASTERIDE 5 MG TAB PO SCH (21:45)
[2017-09-07 04:58] LABS: HEMATOCRIT 27.7 % (40.0-51.0); HEMOGLOBIN 9.1 g/dL (13.7-17.5); MEAN CELL HEMOGLOBIN 29.6 pg (27.9-34.1); MEAN CELL HEMOGLOBIN CONCENTR. 32.9 g/dL (32.4-36.7); MEAN CELL VOLUME 90.2 fL (81.5-99.8); RED BLOOD CELL COUNT 3.07 10^6/uL (4.40-6.38); RED CELL DISTRIBUTION WIDTH 19.8 % (11.5-15.2)
[2017-09-07] MEDS: IPRATROPIUM/ALBUTEROL 3 ML DEYVIAL IH SCH ×2 (05:18→12:07)
[2017-09-07 05:22] LABS: ANION GAP 10 mEq/L (8-16); CALCIUM 8.5 mg/dL (8.5-10.4); CARBON DIOXIDE 25 mEq/l (22-31); CHLORIDE 99 mEq/L (97-110); CREATININE 1.9 mg/dL (0.7-1.3); GLOMERULAR FILTRATION RATE 35; GLUCOSE 117 mg/dL (70-100); POTASSIUM 4.3 mEq/L (3.5-5.2); SODIUM 134 mEq/L (134-144)
[2017-09-07] MEDS: SENNOSIDES/DOCUSATE SODIUM TAB PO SCH (08:42)
[2017-09-07] MEDS: PANTOPRAZOLE SODIUM 40 MG TAB PO SCH (08:43)
[2017-09-07] MEDS: predniSONE 10 MG TAB PO SCH (08:43)
[2017-09-07] MEDS: TAMSULOSIN HCL 0.4 MG CAP PO SCH (08:43)
[2017-09-07] MEDS: guaiFENesin 600 MG TAB.ER PO SCH (08:44)
[2017-09-07] MEDS: LISINOPRIL 5 MG TAB PO SCH (08:44)
[2017-09-07] MEDS: SERTRALINE HCL 25 MG TAB PO SCH (08:45)
[2017-09-07] MEDS: CHOLECALCIFEROL VIT D3 2,000 UNITS TAB/CAP PO SCH (08:45)
[2017-09-07] MEDS: MEGESTROL ACETATE 400 MG/10 ML UDL PO SCH (08:45)
[2017-09-07] MEDS: ATORVASTATIN CALCIUM 40 MG TAB PO SCH (08:45)
--- NOTE | 2017-09-07 09:09 | HOSPPROG ---
Hospitalist Progress Note Assessment/Plan: #Acute blood loss anemia: hematuria. Maybe delgado trauma? Much improved. Urinating on own. Transfused 1 unit RBC. Repeat H/H, UA. Hold AC an ASA. If cannot void, will need to replace delgado with Urology FU #Acute on chronic hypoxic resp failure: COPD exacerbation vs. PNA. Change to oral steroids, cont abx. No PE, no echo -completed 5 days abx today #Metastatic colon cancer/lung cancer: on chemo #ESRD on HD: HD , FU outpatient for HD Monday #Deconditioning: PT to evaluate. #Depression: start SSRI #CAD: statin, ASA #BPH: Flomax #HTN: Lisinopril #Cough: Robitussin #Diet: renal #Disp: DC today Subjective: urinating without delgado. Mild pinkish color Objective: Vital Signs Temp Pulse Resp BP Pulse Ox 36.6 C 97 20 157/90 H 97 09/07/17 07:34 09/07/17 07:34 09/07/17 07:34 09/07/17 08:44 09/07/17 07:34 Laboratory Results 09/07/17 04:45 09/07/17 04:45 09/06/17 09/07/17 09/08/17 05:59 05:59 05:59 Intake Total 450 1275 Output Total 600 900 Balance -150 375 PT 13.9 SEC (12.0-15.0) 09/02/17 20:35 INR 1.08 (0.83-1.16) 09/02/17 20:35 - Physical Exam Constitutional: no apparent distress, chronically ill appearing Eyes: PERRL Ears, Nose, Mouth, Throat: moist mucous membranes, hearing normal Cardiovascular: regular rate and rhythym Respiratory: reduced air movement, expiratory wheeze Gastrointestinal: normoactive bowel sounds, soft, non-tender abdomen Genitourinary: no bladder fullness Skin: warm Musculoskeletal: full muscle strength Neurologic: AAOx3 ICD10 Worksheet Patient Problems: Problems Problem Status Onset Chronic Disease Mgmt/Transitional Care Acute Chronic renal failure Acute 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 Signs and symptoms of severe respiratory distress Acute
--- NOTE | 2017-09-07 10:13 | SOAPPROG ---
SOAP Progress Note Assessment/Plan: Assessment/Plan: ESRD: Pt is on TTS schedule but usually only does HD two days a week, refused getting HD today. - Will plan on next HD on Monday, can be done outpatient if discharged. Hypertension: continue current meds. Anemia: s/p PRBCs transfused on 09/05/17. Hgb at goal, will continue to monitor. Subjective: No acute events overnight. Pt states that he is doing better overall, breathing still not back to baseline but much improved. He states that neb treatments are helping. He is hoping to get out of hospital soon. Objective: Vital Signs Temp Pulse Resp BP Pulse Ox 36.6 C 97 20 157/90 H 97 09/07/17 07:34 09/07/17 07:34 09/07/17 07:34 09/07/17 08:44 09/07/17 07:34 Laboratory Results 09/07/17 04:45 09/07/17 04:45 09/06/17 09/07/17 09/08/17 05:59 05:59 05:59 Intake Total 450 1275 Output Total 600 900 Balance -150 375 PT 13.9 SEC (12.0-15.0) 09/02/17 20:35 INR 1.08 (0.83-1.16) 09/02/17 20:35 General: alert and oriented, no acute distress Eyes; EOMI, PERRL OP: Clear CV: RRR Resp: coarse breath sounds with wheezes Abd: Soft, NT Ext: no edema BLE Neuro: CN II-XII grossly intact, no asterixis Psych: cooperative, appropriate mood and affect Access: LUE AVF with thrill and bruit ICD10 Worksheet Patient Problems: Problems Problem Status Onset Signs and symptoms of severe respiratory distress Acute Chronic Disease Mgmt/Transitional Care Acute Chronic renal failure Acute 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
[2017-09-07 11:06] VITALS: BP 150/78; PULSE 73; RESP 18; TEMP 97.9; O2SAT 98
[2017-09-07] MEDS: SODIUM BICARBONATE 650 MG TAB PO SCH (11:34)
--- NOTE | 2017-09-07 14:07 | ASMTCMCOM ---
CM Note CM Note Notes: Pt cleared by PT/OT, no needs at this time, will dc home w/support of son whom he lives with. CM available for any changes. Date Signed: 09/07/2017 02:06 PM Electronically Signed By:Priscilla Palomares RN
--- NOTE | 2017-09-07 16:23 | ASDISCHSUM ---
Discharge Information Plan Status:Home with No Needs Medically Cleared to Leave: Discharge Date:09/07/2017 02:16 PM CM D/C Disposition:Home, Routine, Self-Care ADT D/C Disposition:Home, Routine, Self-Care Projected Discharge Date:09/07/2017 02:16 PM Transportation at D/C:Family Discharge Delay Reason: Follow-Up Date:09/07/2017 02:16 PM Discharge Slot: Final Diagnosis: Placement Information Patient Contact Information Contact Name:JOEY Relationship:Son Address:[address] City:[place] Alternate Phone: [facility] Code:[place] [address] Email: Financial Information Financial Class: Primary Plan Desc:MEDICARE INPATIENT Primary Plan Number:[id number] Secondary Plan Desc:KATH Tyesha [facility] Secondary Plan Number:[id number] Assessment Information [facility] CM Progress Note CM Note CM Note Notes: PT and OT have been ordered and awaiting recommendations. Needs are TBD at this time. CM to follow for d/c needs. 09/04/2017 Initial CM note 76 year old male admitted for respiratory distress possible pulmonary embolus. He has a hx of colon ca with mets to liver, lung ca, PNA, CRF-dialysis, CAD, CHF, EF=50%, Sepsis. CM to follow for discharge needs. Date Signed: 09/05/2017 02:23 PM Electronically Signed By:CAROLYN Finney [facility] CM Progress Note CM Note CM Note Notes: Pt cleared by PT/OT, no needs at this time, will dc home w/support of son whom he lives with. CM available for any changes. Date Signed: 09/07/2017 02:06 PM Electronically Signed By:Priscilla Palomares RN Intervention Information Intervention Type:*IM-Signed Date of Service:09/07/2017 02:28 PM Patient Type:Inpatient Staff Member:Jenny Shelley Hours: Discipline: Severity: Comment:
--- NOTE | 2017-09-07 19:19 | GDS ---
[f rep st] DISCHARGE SUMMARY DISCHARGE DIAGNOSES: 1. Acute blood loss anemia. 2. Hematuria. 3. Acute on chronic hypoxic respiratory failure. 4. Acute encephalopathy. 5. Metastatic colon cancer. 6. Primary lung cancer. 7. End-stage renal disease, on hemodialysis. 8. Deconditioning. 9. Depression. 10. Coronary disease. 11. Benign prostatic hypertrophy. 12. Hypertension. 13. Cough. HISTORY OF PRESENT ILLNESS: A 76-year-old male, history of metastatic colon cancer, primary lung cancer, currently on chemotherapy, brought in by son with acute shortness of breath and hypoxia. He was in his normal state of health the morning of arrival and had no issue with dialysis that afternoon. When he got home, his son said he became very short of breath, agitated and confused. They deny that he has been complaining of any fevers, chills, or sweats. No nausea, vomiting, diarrhea. He had been more cold. HOSPITAL COURSE BY PROBLEM: 1. Acute on chronic hypoxic respiratory failure: Initial concern was for pulmonary embolism with elevated D-dimer, tachycardia, and malignancy. A CTA was negative along with Dopplers. Echocardiogram was normal. Likely due to COPD exacerbation in the setting of pneumonia. He was treated with 5 days of antibiotics, DuoNebs and steroids, with improvement. He is now on baseline oxygen needs. He had to be treated with IV argatroban with his heparin allergy. 2. End-stage renal disease: Underwent dialysis here without issue. 3. Tachycardia: Initially concern for pulmonary embolism, but this was likely secondary to agitation. Resolved. 4. Indeterminate troponin: Likely secondary to acute illness. He denied any chest pain, and no wall motion abnormalities on echocardiogram. 5. BPH: Continue home medications. 6. History of tobacco abuse, not used for 20 years. 7. History of metastatic colon cancer/primary lung cancer. Follow up with primary oncologist. 8. Acute encephalopathy: This was likely secondary to his acute respiratory failure and pneumonia. He is now at his baseline. 9. Hematuria: This began several days into the hospitalization, likely Reyes trauma: The Reyes has been pulled, and he is urinating on his own with minimal hematuria. If this persists, he should follow up with his PCP for referral to Urology. 10. Depression: I had extensive conversation with him, and he states he has been depressed ever since his a year ago, along with his malignancies. He was agreeable, and we started sertraline. This may be up- titrated as an outpatient. DISPOSITION: The patient is stable to go home with his sons. NEW MEDICATION: Sertraline 25 mg daily. FOLLOWUP: 1. Oncology. 2. Primary care doctor. PHYSICAL EXAMINATION: VITAL SIGNS: Today, temperature 36.6, blood pressure 150 /78, heart rate is in the 70s, respirations 16, 98% on 3 L. GENERAL: Chronically ill-appearing. HEENT: PERRLA. EOMI. Oropharynx clear. CV: Regular rate and rhythm. LUNGS: Diminished throughout with expiratory wheezing, but moving more air than yesterday. ABDOMEN: Soft, nontender, nondistended. Positive bowel sounds. : No Reyes. MUSCULOSKELETAL: 5/5 upper and lower extremity strength. NEURO: 2 through 12 intact. PSYCH: Alert and oriented x3. /[id number]/MODL MTDD
--- NOTE | 2017-09-12 09:59 | PQFORM ---
PHYSICIAN QUERY FORM Needs Your Response This query form is being sent to you to assure this patient record is coded properly. Please respond to the question below: LOGISTICS MANAGEMENT SPECIALIST QUESTION: Dr Pabon Sepsis was mentioned early on in the progress notes but then not mentioned later nor was it in the Discharge Summary. Did this patient have Sepsis? __x_ Yes ___ No ___ Unable to determine ___ Other Dx - please specify Thank You Violet [place] Supervisor INSTRUCTIONS FOR RESPONSE: Answer question by clicking on the "Edit Document" button. Move cursor to area below the stars. When complete, hit "Save." Click on the "Sign" button, then click "Sign" again. Type in your PIN and hit "Enter." MTDD
== END 2017-09-07 14:16 | disposition home or self-care (01) | DRG 871 ==
LOC: EDUNIT# → F2N 22:08 → F3E 09-04 15:27
PROVIDERS: ADMIT Internal Medicine; ATTEND Internal Medicine
PROC: 5A1D70Z Performance of Urinary Filtration, Intermittent, Less than 6 Hours Per Day (ICD-10-PCS; principal; 2017-09-05)
PROC: 30233N1 Transfusion of Nonautologous Red Blood Cells into Peripheral Vein, Percutaneous Approach (ICD-10-PCS; principal; 2017-09-05)
DX: A41.9 Sepsis, unspecified organism (principal); J44.1 Chronic obstructive pulmonary disease with (acute) exacerbation; J44.0 Chronic obstructive pulmonary disease with (acute) lower respiratory infection; J18.9 Pneumonia, unspecified organism; G93.40 Encephalopathy, unspecified; D62 Acute posthemorrhagic anemia; I13.2 Hypertensive heart and chronic kidney disease with heart failure and with stage 5 chronic kidney disease, or end stage renal disease; N18.6 End stage renal disease; I50.9 Heart failure, unspecified; I25.10 Atherosclerotic heart disease of native coronary artery without angina pectoris; C18.9 Malignant neoplasm of colon, unspecified; N40.1 Benign prostatic hyperplasia with lower urinary tract symptoms; R31.9 Hematuria, unspecified; R33.8 Other retention of urine; I25.2 Old myocardial infarction; Z85.05 Personal history of malignant neoplasm of liver; Z92.3 Personal history of irradiation; Z95.5 Presence of coronary angioplasty implant and graft; Z87.891 Personal history of nicotine dependence; Z85.118 Personal history of other malignant neoplasm of bronchus and lung
CPT/HCPCS: 82947-QW; 96365; 97165-GO; G8987-GO-CI; G8988-GO-CI; G8989-GO-CI; J0456; J0696; J0883; J2060; J2930; P9016; Q9967

== ENCOUNTER 2017-09-19 03:38 | Emergency (ER) | payer OTHER ==
--- NOTE | 2017-09-19 05:07 | EDPHY ---
H & P Stated Complaint: right rib pain Source: Patient, Old records Exam Limitations: No limitations - Personal History Current Tetanus/Diphtheria Vaccine: Yes - Medical/Surgical History Hx Asthma: No Hx Chronic Respiratory Disease: No Hx Diabetes: No Hx Cardiac Disease: Yes Hx Renal Disease: Yes Hx Cirrhosis: No Hx Alcoholism: No Hx HIV/AIDS: No Hx Splenectomy or Spleen Trauma: No Other PMH: DIALYISIS MF, LEFT ARM FISTULA, HTN, PROSTATE enlarged, CARDIAC STENTS, RENAL FAILURE, REFLUX, CATARACT SURGERY, HIGH LIPIDS , COLON AND LIVER CA W/ CHEMO THERAPY and resection EARLY 08/07, lung cancer radiation, sternum fx years ago, silent CT years ago, PTSD - Social History Smoking Status: Former smoker Time Seen by Provider: 09/19/17 04:10 HPI/ROS: HPI The patient presents with right-sided rib pain, which he states is been present for the last 4 months though is getting progressively worse. The pain is constant, sharp in nature, worse with changes in position and is in his right chest. He has been coughing frequently, possibly more than usual and he has a cough productive of phlegm. He says that heat pack help pain and he has been using these. He has not had any fevers or chills. He has rhinorrhea which he attributes to his supplemental oxygen, he denies sore throat. He denies any hemoptysis. He has a history of primary lung cancer, metastatic colon cancer, is currently being treated with chemotherapy. He was admitted to the hospital from September 02 to for shortness of breath and hypoxia. He was diagnosed with COPD exacerbation in the setting of pneumonia and took antibiotics. REVIEW OF SYSTEMS Constitutional: No fever, no chills. Eyes: No discharge. ENT: No sore throat. Cardiovascular: No chest pain, no palpitations. Respiratory: See HPI Gastrointestinal: No abdominal pain, no vomiting. Genitourinary: No hematuria. Musculoskeletal: No back pain. Skin: No rashes. Neurological: No headache. PMHx: Primary lung cancer on 3 L of home oxygen, metastatic colon cancer, end- stage renal disease on hemodialysis on Tuesdays and Saturdays, history of anemia , depression, hypertension Soc Hx: Lives with his sons PHYSICAL General Appearance: Alert, chronically ill-appearing Eyes: Pupils equal and round no pallor or injection ENT, Mouth: Mucous membranes moist Respiratory: There are no retractions, lungs are clear to auscultation Chest wall: There is tenderness along the posterior middle ribs diffusely, there are no overlying skin changes, PICC line in place Cardiovascular: Regular rate and rhythm Gastrointestinal: Abdomen is soft and non-tender, no masses, bowel sounds normal Neurological: A&O, moves all extremities Skin: Warm and dry, no rashes Musculoskeletal: Neck is supple non tender Extremities: symmetrical, AV fistula with palpable thrill Psychiatric: Patient is oriented X 3, there is no agitation (RiguzziMegan) Constitutional: Initial Vital Signs Temperature (C) 37.0 C 09/19/17 03:41 Heart Rate 88 09/19/17 03:41 Respiratory Rate 18 09/19/17 03:41 Blood Pressure 100/74 09/19/17 03:41 O2 Sat (%) 93 09/19/17 03:41 O2 Delivery Mode Nasal Cannula O2 (L/minute) 3 Allergies/Adverse Reactions: levofloxacin [From Levaquin] Allergy (Severe, Verified 04/09/17 09:03) Swelling/neck,face,throat cefazolin sodium [From Ancef] Allergy (Verified 04/09/17 09:03) heparin Allergy (Verified 04/09/17 09:03) Home Medications: Medication Instructions Recorded Aspirin [Aspirin 81mg (*)] 81 mg PO DAILY 07/09/16 Atorvastatin Calcium [Lipitor 40 40 mg PO DAILY 07/09/16 mg (*)] Cholecalciferol Vit D3 [Vitamin D3 2,000 units PO DAILY 07/09/16 2000 units tab (OTC)] Eye Promise Restore 2 cap PO DAILY@12 07/09/16 Finasteride [Proscar 5 MG (*)] 5 mg PO HS 07/09/16 Iron Fum/Folic AC/Vit Bcomp,C 1 each PO DAILY 07/09/16 [Dialyvite 800 with Iron Tab] Sodium Bicarbonate [Na Bicarb] 650 mg PO DAILY@07/09/16 Tamsulosin HCl [Flomax 0.4 MG (*)] 0.4 mg PO DAILY 07/09/16 Omeprazole [Prilosec 20 mg] 20 mg PO DAILY 04/01/17 Lisinopril [Zestril 2.5 mg (*)] 2.5 mg PO DAILY 09/02/17 Megestrol Acetate [Megace] 200 mg PO DAILY 09/02/17 predniSONE [Prednisone] 20 mg PO DAILY 09/02/17 Benzonatate [Tessalon Pearles] 100 mg PO TID PRN 09/03/17 Codeine Phosphate/Guaifenesin 5 ml PO Q4 PRN 09/03/17 [Guaifen-Codeine 100-10 mg/5 ml] Prochlorperazine Maleate 10 mg PO Q6 PRN 09/03/17 [Compazine 10mg (*)] Sertraline HCl [Zoloft 25mg (*)] 25 mg PO DAILY #30 tab 09/07/17 Doxycycline Hyclate 100 mg PO BID #20 tab 09/19/17 Zoloft 25mg (*) 09/19/17 Medical Decision Making - Diagnostics Imaging Results: Chest x-ray with rib views shows right middle lobe mass versus infiltrate, larger than on previous x-ray, there are no rib fractures. (Megan Shah) CT PE: Reviewed with Dr. Monique. No PE. Post-obstructive changes in right lung and new infiltrates in the left lung field. (Wil Cash) Differential Diagnosis: 76-year-old male multiple medical problems including lung cancer with metastatic colon cancer, on chemotherapy, end-stage renal disease who presents from home with right-sided rib pain which has been present for the last 4 months though becoming more severe. He was admitted to the hospital about 3 weeks ago for acute shortness of breath thought to be due to COPD exacerbation and pneumonia. He had a normal CTA at that time. Differential diagnosis includes pulmonary embolism, worsening lung cancer, rib fracture, bony involvement of malignancy. He declines any medicine for pain. We will get him a heat pack. I will check chest x-ray, rib series, basic labs including D-dimer. The patient was monitored, he had no worsening of his symptoms here though continued to be in pain. Chest x-ray did reveal what appears to be a worsening malignancy of his right middle lobe, larger in size then what was reported on the CT scan a few weeks ago. He did not have any rib fractures on chest x-ray today. Labs showed leukocytosis which could be related to infection verses affective recent steroid use. D-dimer eventually returned elevated. I have consulted with Dr. Patel of Nephrology, we have discussed risks and benefits of CT scan to evaluate for PE and we have decided to proceed. V/Q scan would likely be nondiagnostic given his lung cancer. I have ordered CT scan for him. At 7:00 a.m., the case will be signed out to the oncoming provider Dr. Cash. ( Megan Shah) Other Provider: I assumed care of the patient at 7 o'clock in the morning pending CT pulmonary angiogram. CT scan demonstrates no evidence of an acute pulmonary embolism but does demonstrate infiltrate in the left lung. The patient is afebrile and not acutely hypoxemic. The patient would like to be managed as an outpatient. He plans to go to his regular outpatient dialysis today at noon. The patient will be started on doxycycline for possible bacterial infection. He is advised to return to the ED for markedly worsening symptoms or other concerns. (Wil Cash) - Data Points Laboratory Results: Laboratory Results 09/19/17 05:05 09/19/17 05:05 09/19/17 09/19/17 09/19/17 05:30 05:05 05:05 WBC 12.99 10^3/uL H 10^3/uL (3.80-9.50) RBC 3.14 10^6/uL L 10^6/uL (4.40-6.38) Hgb 9.0 g/dL L g/dL (13.7-17.5) Hct 27.7 % L % (40.0-51.0) MCV 88.2 fL fL (81.5-99.8) MCH 28.7 pg pg (27.9-34.1) MCHC 32.5 g/dL g/dL (32.4-36.7) RDW 19.7 % H % (11.5-15.2) Plt Count 229 10^3/uL 10^3/uL (150-400) MPV 9.8 fL fL (8.7-11.7) Neut % (Auto) 85.7 % H % (39.3-74.2) Lymph % (Auto) 4.9 % L % (15.0-45.0) [place] % (Auto) 8.1 % % (4.5-13.0) Eos % (Auto) 0.5 % L % (0.6-7.6) Baso % (Auto) 0.2 % L % (0.3-1.7) Nucleat RBC Rel Count 0.0 % % (0.0-0.2) Absolute Neuts (auto) 11.12 10^3/uL H 10^3/uL (1.70-6.50) Absolute Lymphs (auto) 0.64 10^3/uL L 10^3/uL (1.00-3.00) Absolute Monos (auto) 1.05 10^3/uL H 10^3/uL (0.30-0.80) Absolute Eos (auto) 0.07 10^3/uL 10^3/uL (0.03-0.40) Absolute Basos (auto) 0.03 10^3/uL 10^3/uL (0.02-0.10) Absolute Nucleated RBC 0.00 10^3/uL 10^3/uL (0-0.01) Immature Gran % 0.6 % % (0.0-1.1) Immature Gran # 0.08 10^3/uL 10^3/uL (0.00-0.10) D-Dimer 1.76 ug/mLFEU H ug/mLFEU (0.00-0.50) Sodium 136 mEq/L mEq/L (134-144) Potassium 4.2 mEq/L mEq/L (3.5-5.2) Chloride 99 mEq/L mEq/L (97-110) Carbon Dioxide 25 mEq/l mEq/l (22-31) Anion Gap 12 mEq/L mEq/L (8-16) BUN 32 mg/dL H mg/dL (7-23) Creatinine 2.1 mg/dL H mg/dL (0.7-1.3) Estimated GFR 31 Glucose 104 mg/dL H mg/dL (70-100) Calcium 8.9 mg/dL mg/dL (8.5-10.4) Total Bilirubin 0.9 mg/dL mg/dL (0.1-1.4) AST 68 IU/L H IU/L (17-59) ALT 96 IU/L H IU/L (21-72) Alkaline Phosphatase 128 IU/L H IU/L (38-126) Troponin I 0.023 ng/mL ng/mL (0.000-0.034) Total Protein 6.3 g/dL g/dL (6.3-8.2) Albumin 3.2 g/dL L g/dL (3.5-5.0) Departure - Departure Disposition: Home, Routine, Self-Care Clinical Impression: Colon carcinoma metastatic to liver, Pneumonia Chronic renal failure Qualifiers: Chronic kidney disease stage: stage 4 (severe) Qualified Code(s): N18.4 - Chronic kidney disease, stage 4 (severe) Chest pain Qualifiers: Chest pain type: chest pain on breathing Qualified Code(s): R07.1 - Chest pain on breathing Lung cancer Qualifiers: Laterality: right Lung location: unspecified part of lung Qualified Code(s): C34.91 - Malignant neoplasm of unspecified part of right bronchus or lung Condition: Fair Instructions: Chest Pain (ED) Additional Instructions: 1. Please take antibiotics as directed. 2. Please schedule a follow-up appointment with your primary oncologist for recheck this week. 3. Please return to the ED for markedly worsening symptoms or other concerns. Referrals: Henrry Mitchell MD [Medical Doctor] - As per Instructions Prescriptions: Doxycycline Hyclate 100 mg PO BID #20 tab
[2017-09-19 05:22] LABS: % IMMATURE GRANULYOCYTES 0.6 % (0.0-1.1); ABSOLUTE IMMATURE GRANULOCYTES 0.08 10^3/uL (0.00-0.10); ADD DIFF? NO; ADD MORPH? NO; ADD SCAN? NO; ATYPICAL LYMPHOCYTE FLAG 10 (0-99); FRAGMENT RBC FLAG 20 (0-99); HEMATOCRIT 27.7 % (40.0-51.0); LEFT SHIFT FLG 10 (0-99); LIPEMIA HEMOLYSIS FLAG 80 (0-99); MEAN CELL HEMOGLOBIN 28.7 pg (27.9-34.1); MEAN CELL HEMOGLOBIN CONCENTR. 32.5 g/dL (32.4-36.7); MEAN CELL VOLUME 88.2 fL (81.5-99.8); MEAN PLATELET VOLUME 9.8 fL (8.7-11.7); PLATELET CLUMPS FLAG 10 (0-99); PLATELET COUNT 229 10^3/uL (150-400); RED BLOOD CELL COUNT 3.14 10^6/uL (4.40-6.38); RED CELL DISTRIBUTION WIDTH 19.7 % (11.5-15.2)
[2017-09-19 05:44] LABS: ALANINE AMINOTRANSFERASE 96 IU/L (21-72); ALBUMIN 3.2 g/dL (3.5-5.0); ALKALINE PHOSPHATASE 128 IU/L (38-126); ANION GAP 12 mEq/L (8-16); ASPARTATE AMINOTRANSFERASE 68 IU/L (17-59); BILIRUBIN,TOTAL 0.9 mg/dL (0.1-1.4); CALCIUM 8.9 mg/dL (8.5-10.4); CARBON DIOXIDE 25 mEq/l (22-31); CHLORIDE 99 mEq/L (97-110); CREATININE 2.1 mg/dL (0.7-1.3); GLOMERULAR FILTRATION RATE 31; GLUCOSE 104 mg/dL (70-100); POTASSIUM 4.2 mEq/L (3.5-5.2); SODIUM 136 mEq/L (134-144); TOTAL PROTEIN 6.3 g/dL (6.3-8.2)
[2017-09-19 05:55] LABS: TROPONIN I 0.023 ng/mL (0.000-0.034)
[2017-09-19] MEDS ORDERED: IOPAMIDOL (ISOVUE 370) 100 ML BTL IV ONE (06:52)
[2017-09-19 07:21] VITALS: BP 136/51
[2017-09-19 08:11] VITALS: PULSE 99; RESP 20; TEMP 98.6; O2SAT 95
== END 2017-09-19 08:11 | disposition home or self-care (01) ==
DX: C34.91 Malignant neoplasm of unspecified part of right bronchus or lung (principal); C18.9 Malignant neoplasm of colon, unspecified; C78.7 Secondary malignant neoplasm of liver and intrahepatic bile duct; J18.9 Pneumonia, unspecified organism; I25.2 Old myocardial infarction; I12.0 Hypertensive chronic kidney disease with stage 5 chronic kidney disease or end stage renal disease; N18.6 End stage renal disease; Z99.2 Dependence on renal dialysis; Z79.82 Long term (current) use of aspirin; Z87.891 Personal history of nicotine dependence
CPT/HCPCS: 71101; 71275; 99285; Q9967